=== PATIENT | female | born 1965 | race Caucasian/White ===

== ENCOUNTER 2023-06-24 14:54 | Outpatient (AMB) | payer OTHER, SELFPAY ==
[2023-06-24 15:10] VITALS: BP 120/80; PULSE 78; O2SAT 96; BMI 32.2
--- NOTE | 2023-06-24 15:10 | A.OFFVIS_ITS ---
Intake Vital Signs 06/24/23 15:10 Height 5 ft 8 in Weight 212 lb BMI 32.2 BP 120/80 Blood Pressure Location Rt brachial Position Sitting Pulse 78 Pulse Source Pulse Oximeter Pulse Oximetry (%) 96 Oxygen Delivery Method Room Air Intake Visit Reasons: vishal occ neuralgia, migraine-Conf Intake Note: Patient presents for migraines patient gets migraines 5 times a week, patient has had migraines since teenage years. Allergies aspirin Allergy (Severe, Verified 06/24/23 15:12) Hives Penicillins Allergy (Severe, Verified 06/24/23 15:12) Hives sumatriptan [From Imitrex] Allergy (Severe, Verified 06/24/23 15:12) Agitated prochlorperazine [From Compazine] Allergy (Verified 06/24/23 15:12) Agitated Medication List - Last Reconciled 06/24/23 by Ade Jacobson, ALMA alprazolam 0.5 mg PO DAILY atenolol 50 mg PO DAILY baclofen 20 mg PO QID meclizine 25 mg PO DAILY PRN omeprazole 20 mg PO DAILY ondansetron HCl 8 mg PO Q12H oxycodone-acetaminophen 7.5-300 mg 1 tab PO Q8H PRN trazodone 100 mg PO BEDTIME PRN HPI HPI Comments History of Present Illness Details 57-yr-old female presents for new pt makeda luation of worsening headaches. Pt started having episodic migraine at age 16 at onset of menarche. Then approx 10-11 yrs ago, the headache subsided x's approx 5 yrs. Then out of the blue, the migraine retunred but not w/ a chronic pattern. She has seen many neurologists over the years, she most recently seen by [facility]- last seen approx 1.5 yrs ago. She was tried on Emgality which was not helpful, and then was tried on acetazolamide for ? IIH which she did not tolerate- note per pt she had normal eye exama nd did not have previous recent wt gain, vision changes, LP, head imaging. She was supposed to have MRI but there was insurance auth/scheduling issues. Many yrs ago, she was diagnosed w/ MS by DR Weiss. Per pt- was dx'd based on Brain MRI w/ white matter changes, but normal VEP and LP CSF studies. She was on daily MS injections x's 6 yrs. She was seen by [facility]- and they suggested she be seen by someone closer to home. She then had a f/u comprehensive neuro work-up- and thought that the white matter changes were not specific to MS and thus the MS DMT was stopped. Her last Brain MRI was > 5-6 yrs ago through [facility]. Pt also endorses: anxiety, depression, joint pain, neck pain, some constipation, GERD, h/o gastric bypass sx, insomnia. Pertinent denials include: denies h/o neck injuries, h/o head injuries, denies seizures, denies clotting/vascular d/o's. Headache questionnaire: Age/time of onset? 16 Preceding causes? none Typical headache characteristics: Prodrome symptoms? Unsure Aura? Sees stars before severe attack Pain intensity? Mild-mod or Severe Location, quality, characteristics? Throbbing, stabbing, usually right sided, rarely left sided, and retro-orbital pain. Associated symptoms? Photophobia, phonophobia, allodynia, osmophobia, Nausea, fatigue, yawning, swollen eyelids, activity intolerance, Postdrome? Unsure Triggers? bending over- stress, weather changes, exacerbates headache Time of day? no specific time Duration and Frequency? 18 severe days per month, otherwise near daily mild headache. Rarely has a headache free day. How does headache impact your life? difficult to do her daily activities. 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 Lifestyle considerations: Sleep- can go days w/o sleeping. has had sleep study- normal- prior to gastric bypass. deneis snoring. Uses trazodone which helps. Bedtime- 8pm to 3:30-6am. Exercise: none Substance use: 3 caffeine drinks prior to 12pm. 2 cigarettes per day. No alcohol. Current acute medication use/interventions: Previous acute medication use: Maxalt 10mg- not always effective. Sumatriptan po and inj- not tolerated. Prednisone- sometimes helped. Current preventative medication use: Atenolol 50mg qd (used for migraine). Previous preventative medication use: Mag and B2- ineffective. Topiramate- caused excessive tingling. Acetazolamide- not tolerated- caused dysguesia. Occipital nerve blocks- sometimes helped. Emgality x's 4 cycles- ineffective. Non-pharmacological interventions: rest. PT- 4 yrs ago Family history of migraine or other headache disorder? mother, sister, dtr PFSH Surgical History (Updated 06/24/23 @ 15:13 by STEFANO Kilgore) H/O arthroscopic knee surgery H/O: hysterectomy Family History (Updated 06/24/23 @ 15:14 by STEFANO Kilgore) Father HTN (hypertension) Diabetes Mother HTN (hypertension) Thyroid condition Brother HTN (hypertension) Social History (Updated 06/24/23 @ 15:14 by STEFANO Kilgore) Alcohol intake: never Patient Tobacco Use Status: Current everyday Tobacco user Physical Exam Vital Signs: Last Vital Signs Pulse 78 06/24/23 15:10 BP 120/80 06/24/23 15:10 Pulse Ox 96 06/24/23 15:10 Oxygen Delivery Method Room Air 06/24/23 15:10 BMI result Body Mass Index 32.2 Const Orientation/consciousness: patient oriented x3 HEENT Head: Yes normocephalic Resp Effort & Inspection: normal respiratory effort and able to speak in complete sentences Neuro Other: EOM- eye deviation on convergence. Bilteral posterio cervcical tightness w/ Spurling positive to the left neck/upper trap. Mildy unsteady during Tandem walk. General: patient oriented x3 Cranial nerves: Yes CN's II-XII intact bilaterally Cognition (Neuro): normal cognition Gait exam (Neuro): Normal gait present Motor exam (neuro): 5/5 motor strength present throughout Deep tendon reflexes (DTR's): Right triceps reflex intensity grade: 2+, Left triceps reflex intensity grade: 2+, Rt Biceps (C5, C6): 2+, Left biceps reflex intensity grade: 2+, Right brachioradialis reflex intensity grade: 2+, Left brachioradialis reflex intensity grade: 2+, Right patellar reflex intensity grade: 1+ and Left patellar reflex intensity grade: 1+ Coordination: [id number] test normal and Romberg test negative Pupils: Normal pupillary reactivity/response: bilateral Psych Appearance: grossly normal Mental Status: mental status grossly normal Speech and movement: Normal speech and movement present Affect: normal affect Attitude: cooperative Thought process: Normal thought process present Assessment & Plan Assessment & Plan (1) Worsening headaches: Code(s): R51.9 - Headache, unspecified (2) Cervicalgia: Code(s): M54.2 - Cervicalgia (3) White matter abnormality on MRI of brain: Code(s): R90.82 - White matter disease, unspecified (4) Chronic migraine without aura: Code(s): G43.709 - Chronic migraine without aura, not intractable, without status migrainosus Plan Pt advised to undergo: C-spine XR w/ flex/ext. Brain MRI w/wo- to assess white matter lesion burden. For overall headache management: Discussed importance of good self-care, including but not limited to maintaining a healthy diet, adequate fluid intake, adequate sleep, and engaging in regular physical activity. For headache triggers: Track headaches, especially after any treatment regimen changes. Light sensitivity tips: Patient may try blue light filtering glasses, green glasses, green light therapy.. Avoid wearing sunglasses inside. For acute headache treatment: Discussed importance of taking acute medications at the first sign of headache, however stressed importance of avoiding acute medication overuse (especially with combined headache medications). Trial Nurtec ODT 75mg qd prn- this may be particulalry beneficial as pt has h/o gastric wt loss sx. Reviewed potential adverse effects of gepants, including but not limited to fatigue, nausea, dry mouth, constipation. Previous acute migraine medication trials: Maxalt 10mg- not always effective. Sumatriptan po and inj- not tolerated. Prednisone- sometimes helped. Acute migraine medication contraindications: None at this time. For chronic migraine headache prevention medication: Discussed that preventative medications should be taken routinely as prescribed for best effect, it may take several weeks for full effect to take effect. Contineu Atenolol 50mg qd (used for migraine). Start Botox 155 units IM q 12 weeks. Previous migraine prevention medication trials: Mag and B2- ineffective. Topiramate- caused excessive tingling. Acetazolamide- not tolerated- caused dysguesia. Occipital nerve blocks- sometimes helped. Emgality x's 4 cycles- ineffective. Migraine prevention medication contraindications: Pt to follow-up in 2 months or sooner prn. Orders: Orders XR cervical spine w flex/ext 06/24/23 M54.2 - Cervicalgia XR cervical spine 4V 06/24/23 M54.2 - Cervicalgia MR head/brain wo/w con 06/24/23 R51.9 - Headache, unspecified, R90.82 - White matter disease, unspecified Medications: New onabotulinumtoxinA (Botox) inject 155 units IM across forehead, scalp, and neck 200 units IM ONCE 12 weeks 1 ea 3RF G43.709 - Chronic migraine without aura, not intractable, without status migrainosus rimegepant (Nurtec ODT) 75 mg PO ONCE 30 days PRN 16 tabs 3RF migraine headache MDD 1 tab Coding Level of Care Code Est Pt Level 5 (99535) Diagnoses Worsening headaches R51.9 Cervicalgia M54.2 White matter abnormality on MRI of brain R90.82 Chronic migraine without aura G43.703
== END 2023-06-24 16:49 | disposition home or self-care (01) ==
PROVIDERS: PCP Nurse Practitioner Adult Health; Visit Provider Nurse Practitioner Family
DX: G43.709 Chronic migraine without aura, not intractable, without status migrainosus (principal); M54.2 Cervicalgia; R90.82 White matter disease, unspecified
CPT/HCPCS: 99215

== ENCOUNTER → 2023-06-24 14:54 | Outpatient (BNVA) | payer OTHER, SELFPAY | PROVIDERS: PCP Nurse Practitioner Adult Health; Visit Provider Nurse Practitioner Family ==

== ENCOUNTER 2023-08-08 07:47 | Outpatient (REF) | payer OTHER, SELFPAY ==
--- NOTE | ~2023-08-08 | MR_ITS ---
EXAMINATION: MR BRAIN WITHOUT AND WITH CONTRAST CLINICAL INFORMATION: White matter disease. COMPARISON: None available. TECHNIQUE: Multiplanar, multisequence MRI of the brain was obtained before and after the intravenous administration of 10 mL Gadavist. FINDINGS: Multifocal nearly confluent subcortical and periventricular supratentorial white matter T2 hyperintensities are identified. A dot dash pattern of T2 hyperintensity is present along the callosal septal interface. Several periventricular T2 hyperintensities are noted in a perivenular configuration. No areas of cystic encephalomalacia (T1 dark spots) are identified. No infratentorial lesions are identified. The middle cerebellar peduncles are normal in appearance. Overall mild diffuse commensurate prominence of ventricles and sulci is noted. No intracranial hemorrhage or tumors visualized. Susceptibility weighted images reveal no evidence of acute or chronic hemorrhage within the brain parenchyma. The craniocervical junction and cerebellar tonsils are normal in appearance. Convex inward configuration of the superior margin the pituitary is identified which is a frequently encountered normal anatomic variant. No marrow abnormalities are visualized. No abnormal enhancement the brain noted. Grossly normal flow-related signal intensity is visualized in the major intracranial vessels and dural sinuses. Orbits and globes are normal in appearance. No significant mucosal thickening or retained secretions noted in the paranasal sinuses, mastoid air cells and middle ear cavities. MR/MR head/brain wo/w con IMPRESSION: 1. Multifocal supratentorial periventricular and juxtacortical nonenhancing T2 hyperintense lesions. No infratentorial lesions. No areas of cystic encephalomalacia (T1 dark spots). Findings may represent demyelinating disease. If comparison exams become available for review, an addendum to this report may be issued. 2. Mild diffuse commensurate prominence of ventricles and sulci. This is a borderline finding mildly suspicious for global parenchymal volume loss.
--- NOTE | ~2023-08-08 | XR_ITS ---
EXAMINATION: XR CERVICAL SPINE CLINICAL INFORMATION: Cervicalgia COMPARISON: None available. TECHNIQUE: 7 views of the cervical spine, inclusive of flexion and extension views and bilateral oblique views, were obtained. FINDINGS: The tip of the odontoid is obscured on the open-mouth view. There is straightening of the usual cervical lordosis which can be seen with muscle spasm or be due to patient positioning. There is no fracture or subluxation. There is no change in alignment with flexion and extension. Prevertebral soft tissues are within normal limits. There are anterior marginal osteophytes from C4 through C7. There is minimal disc space narrowing at C5-C6 and C6/C7. The neural foramina are widely patent. XR/XR cervical spine min 6V IMPRESSION: 1. Degenerative disc disease at C5-C6 and C6/C7. 2. Straightening of the usual cervical lordosis which can be seen with muscle spasm or be due to patient positioning.
[2023-08-08] MEDS: gadobutroL 10 ML VIAL IVPUSH (09:14)
== END 2023-08-08 07:48 | disposition home or self-care (01) ==
LOC: HO.MRI 07:47
PROVIDERS: PCP Nurse Practitioner Adult Health; Visit Provider Nurse Practitioner Family
DX: R51.9 Headache, unspecified (principal); M50.322 Other cervical disc degeneration at C5-C6 level; M48.02 Spinal stenosis, cervical region; M50.321 Other cervical disc degeneration at C4-C5 level
CPT/HCPCS: 70553; 72052; A9585

== ENCOUNTER 2023-08-17 07:35 | Outpatient (AMB) | payer OTHER, SELFPAY ==
--- NOTE | 2023-08-17 07:36 | A.OFFVIS_ITS ---
Intake Visit Reasons: 8 wks f/u-LVM Intake Note: Patient presents for 8 week follow up Allergies aspirin Allergy (Severe, Verified 08/17/23 07:42) Hives Penicillins Allergy (Severe, Verified 08/17/23 07:42) Hives sumatriptan [From Imitrex] Allergy (Severe, Verified 08/17/23 07:42) Agitated prochlorperazine [From Compazine] Allergy (Verified 08/17/23 07:42) Agitated Medication List - Last Reconciled 08/17/23 by Ade Jacobson, ALMA alprazolam 0.5 mg PO DAILY atenolol 50 mg PO DAILY baclofen 20 mg PO QID meclizine 25 mg PO DAILY PRN omeprazole 20 mg PO DAILY onabotulinumtoxinA (Botox) 200 units IM ONCE 12 weeks ondansetron HCl 8 mg PO Q12H oxycodone-acetaminophen 7.5-300 mg 1 tab PO Q8H PRN rimegepant (Nurtec ODT) 75 mg PO ONCE PRN 30 days MDD 1 tab trazodone 100 mg PO BEDTIME PRN HPI Comments Details: 57-yr-old female presents for f/u televisit via [employer]. Pt denies any significant interval medical changes. Pt reports she is having 2.5 weeks of migraine days per month, and 5 headache days per week. She started Nurtec, which sometimes helps but sometimes doesn't, like the rizatriptan. However, states the Nurtec helps more often than not. She has not started the Botox yet. Baseline headache characteristics: Aura: Sees stars before severe attack Headache: Mild-mod or Severe, Throbbing, stabbing, usually right sided, rarely left sided, and retro-orbital pain a/w Photophobia, phonophobia, allodynia, osmophobia, Nausea, fatigue, yawning, swollen eyelids, activity intolerance. She continues to have chronic muscle tightness, when more severe has aching non- radiating pain on neck movement. The neck pain makes it difficult to sleep. The c-spine XR showed evidence for muscle spasm. Pt notes that she is compliant w/ Baclofen 20mg qid. In the past, she tried Gabapentin- caused excessive sedation even w/ prolonged trial, Tizanidine- ineffective, Cyclobenzaprine- has helped in the past for back muscle spasm. 08/08/23, XR/XR cervical spine min 6V IMPRESSION: 1. Degenerative disc disease at C5-C6 and C6/C7. 2. Straightening of the usual cervical lordosis which can be seen with muscle spasm or be due to patient positioning. PFS Surgical History (Updated 06/24/23 @ 15:13 by STEFANO Kilgore) H/O arthroscopic knee surgery H/O: hysterectomy Family History (Updated 06/24/23 @ 15:14 by STEFANO Kilgore) Father HTN (hypertension) Diabetes Mother HTN (hypertension) Thyroid condition Brother HTN (hypertension) Social History (Updated 06/24/23 @ 15:14 by STEFANO Kilgore) Alcohol intake: never Patient Tobacco Use Status: Current everyday Tobacco user Physical Exam Const General: cooperative and no acute distress Orientation/consciousness: patient oriented x3 Resp Effort & Inspection: normal respiratory effort and able to speak in complete sentences Neuro General: patient oriented x3 Cognition (Neuro): normal cognition Psych Appearance: grossly normal Mental Status: mental status grossly normal Speech and movement: Clear speech present Affect: normal affect Attitude: cooperative Telehealth Telehealth Telehealth Platform: [employer] Location of provider rendering services: practice address Location of patient: address on file Patient Identification confirmed using: Name, : Yes Telehealth method: video Patient verbally consented to treatment: Yes Patient verbally consented to billing insurance company: Yes Patient informed of any privacy concerns related to visit: Yes Minutes spent on Phone/Video with Pt.: 23 Assessment & Plan Assessment & Plan (1) Cervicalgia: Code(s): M54.2 - Cervicalgia Category: Medical (2) Chronic migraine without aura: Code(s): G43.709 - Chronic migraine without aura, not intractable, without status migrainosus Category: Medical Plan Reviewed C-spine XR w/ flex/ext- Degenerative disc disease at C5-C6 and C6/C7. Straightening of the usual cervical lordosis c/w muscle spasm.. Review Brain MRI w/wo- when available. For cervicalgia: Start PT for myofascial release, craniosacral tx, and eval for dry needling. Hold Baclofen 20mg qid. Trial Cyclobenzaprine 10mg tid. Future considerations: Methocarbamonal trial. For overall headache management: Continue optimizing good self-care, including but not limited to maintaining a healthy diet, adequate fluid intake, adequate sleep, and engaging in regular ph ysical activity. Track headaches. ? For acute headache treatment: Continue Nurtec ODT 75mg qd prn- as Maxalt not always effective. Continue Rizatriptan 10mg prn. Previous acute migraine medication trials: Sumatriptan po and inj- not tolerated. Prednisone- sometimes helped. Acute migraine medication contraindications: None at this time. ? For chronic migraine headache prevention medication: Will f/u on order to start Botox 155 units IM q 12 weeks. Trial Amitriptyline 10-20mg qhs. Continue Atenolol 50mg qd (used for migraine). Previous migraine prevention medication trials: Mag and B2- ineffective. Topiramate- caused excessive tingling. Acetazolamide- not tolerated- caused dysguesia. Occipital nerve blocks- sometimes helped. Emgality x's 4 cycles- ineffective. Migraine prevention medication contraindications: ? ? Pt to follow-up in 3 months or sooner prn. Orders: Orders PT Evaluation and Treatment Today G43.709 - Chronic migraine without aura, not intractable, without status migrainosus, M54.2 - Cervicalgia Medications: New cyclobenzaprine 10 mg PO TID 10 days 30 tabs 0RF amitriptyline 10 - 20 mg (1 - 2 x 10 mg) PO BEDTIME 30 days 60 tabs 3RF Coding Level of Care Code Tele Est Pt Level 4 (00935) Diagnoses Cervicalgia M54.2 Chronic migraine without aura G43.709
== END 2023-08-17 16:07 | disposition home or self-care (01) ==
LOC: HO.HSMS 07:35
PROVIDERS: PCP Nurse Practitioner Adult Health; Visit Provider Nurse Practitioner Family
DX: M54.2 Cervicalgia (principal); G43.709 Chronic migraine without aura, not intractable, without status migrainosus
CPT/HCPCS: 99214

== ENCOUNTER → 2023-08-17 07:35 | Outpatient (BNVA) | payer OTHER, SELFPAY | PROVIDERS: PCP Nurse Practitioner Adult Health; Visit Provider Nurse Practitioner Family ==

== ENCOUNTER 2023-09-28 08:39 | Outpatient (AMB) | payer OTHER, SELFPAY ==
--- NOTE | 2023-09-28 08:42 | MHC.OFFVIS ---
Vital Signs 09/28/23 08:50 Height 5 ft 8 in Weight 199 lb BMI 30.3 BP 120/72 Blood Pressure Location Lt brachial Position Sitting Pulse 88 Pulse Source Pulse Oximeter Pulse Oximetry (%) 99 Oxygen Delivery Method Room Air Intake Visit Reasons: BOTOX Intake Note: Patient presents for Botox. Allergies aspirin Allergy (Severe, Verified 09/28/23 08:50) Hives Penicillins Allergy (Severe, Verified 09/28/23 08:50) Hives sumatriptan [From Imitrex] Allergy (Severe, Verified 09/28/23 08:50) Agitated prochlorperazine [From Compazine] Allergy (Verified 09/28/23 08:50) Agitated Medication List - Last Reconciled 09/28/23 by Sindy Cesar MD alprazolam 0.5 mg PO DAILY amitriptyline 10 - 20 mg (1 - 2 x 10 mg) PO BEDTIME 30 days atenolol 50 mg PO DAILY baclofen 20 mg PO QID cyclobenzaprine 10 mg PO TID 30 days meclizine 25 mg PO DAILY PRN omeprazole 20 mg PO DAILY onabotulinumtoxinA (Botox) 200 units IM ONCE 12 weeks ondansetron HCl 8 mg PO Q12H oxycodone-acetaminophen 7.5-300 mg 1 tab PO Q8H PRN rimegepant (Nurtec ODT) 75 mg PO ONCE PRN 30 days MDD 1 tab trazodone 100 mg PO BEDTIME PRN HPI Comments Details: ? 57y/o female comes for treatment of migraines with botox. ??? Most frequent reported adverse reactions following injection of botox for chronic migraine include neck pain (9%), headache(5%), eyelid ptosis(4%), migraine(4%), muscular weakness(4%), musculuskeletal stiffness(4%), bronchitis(3%), injection site pain (3%), musculoskeletal pain(3%), myalgia(3%), facial paresis(2%), HTN(2%) and muscle spasms(2%) were discussed in detail. ??? Botulinum toxin typeA 200units Lot no [id number] expiration October 2025 was diluted with 4 cc of normal saline . ??? Muscles injected- ??? Frontalis 4 sites ??? Procerus 1 site ??? [employer] Wildlife [employer]- 2 sites ??? Temporalis- 8 sites ??? Occipitalis- 6 sites ??? Cervical paraspinals- 4 sites ??? Trapezius- 6 sites- 10 units each ??? 5 units each in 31 site ??? Total use- 185units ??? Discarded-15units PFSH Surgical History H/O arthroscopic knee surgery H/O: hysterectomy Family History Father HTN (hypertension) Diabetes Mother HTN (hypertension) Thyroid condition Brother HTN (hypertension) Social History Alcohol intake: never Patient Tobacco Use Status: Current everyday Tobacco user Physical Exam Vital Signs: Last Vital Signs Pulse 88 09/28/23 08:50 BP 120/72 09/28/23 08:50 Pulse Ox 99 09/28/23 08:50 Oxygen Delivery Method Room Air 09/28/23 08:50 BMI result Body Mass Index 30.3 Const General: cooperative and no acute distress Orientation/consciousness: patient oriented x3 Resp Effort & Inspection: normal respiratory effort and able to speak in complete sentences Neuro General: patient oriented x3 Cognition (Neuro): normal cognition Psych Appearance: grossly normal Mental Status: mental status grossly normal Speech and movement: Clear speech present Affect: normal affect Attitude: cooperative Office Procedures Botulinum toxin Injection 66275 - Migraine Procedure code (CPT) selection complete Office Meds onabotulinumtoxinA 200 unit solution for injection Performing Provider: Sindy Cesar MD Performing Location: [facility] [place] [facility] Administered by: Sindy Cesar MD on 09/28/23 09:14 Dose Route Admin Location Dispensed Lot Number Expiration Date [facility] 185 unit subcut 200 units [id number] 10/09/25 3159-6938-69 ALLERGAN/BOTOX Comments: see HPI Assessment & Plan Assessment & Plan (1) Chronic migraine without aura: Code(s): G43.709 - Chronic migraine without aura, not intractable, without status migrainosus Category: Medical Plan Patient tolerated the procedure well she will call with any side effects Orders: Orders AMB Botulinum toxin Injection - Patient Supplied Today G43.709 - Chronic migraine without aura, not intractable, without status migrainosus Medications: New onabotulinumtoxinA 200 units subcut ONCE 1 ea 0RF Migraine G43.709 - Chronic migraine without aura, not intractable, without status migrainosus Coding Level of Care Code Est Pt Level 1 (57898) Diagnoses Chronic migraine without aura G43.709 CPT Codes Botox Injection - Botox 3: 96368 - Migraine ([id number])
[2023-09-28 08:50] VITALS: BP 120/72; PULSE 88; O2SAT 99; BMI 30.3
== END 2023-09-28 09:07 | disposition home or self-care (01) ==
PROVIDERS: PCP Nurse Practitioner Adult Health; Visit Provider Psychiatry & Neurology Neurology
DX: G43.709 Chronic migraine without aura, not intractable, without status migrainosus (principal)
CPT/HCPCS: 64615

== ENCOUNTER → 2023-09-28 08:39 | Outpatient (BNVA) | payer OTHER, SELFPAY | PROVIDERS: PCP Nurse Practitioner Adult Health; Visit Provider Psychiatry & Neurology Neurology | DX: G43.709 Chronic migraine without aura, not intractable, without status migrainosus (principal) | CPT/HCPCS: 64615; 99211; J0585 ==

== ENCOUNTER 2023-11-21 08:56 | Outpatient (AMB) | payer OTHER, SELFPAY ==
[2023-11-21 09:12] VITALS: BMI 30.3
--- NOTE | 2023-11-21 09:12 | A.OFFVIS_ITS ---
Vital Signs 11/21/23 09:12 Height 5 ft 8 in Weight 199 lb BMI 30.3 Intake Visit Reasons: 2 Month F/U-LVM Intake Note: Patient presents for 2 month follow up. patient states migraines are better since her last visit Allergies aspirin Allergy (Severe, Verified 11/21/23 09:14) Hives Penicillins Allergy (Severe, Verified 11/21/23 09:14) Hives sumatriptan [From Imitrex] Allergy (Severe, Verified 11/21/23 09:14) Agitated prochlorperazine [From Compazine] Allergy (Verified 11/21/23 09:14) Agitated Medication List - Last Reconciled 11/21/23 by ALMA Sidhu alprazolam 0.5 mg PO DAILY amitriptyline 10 - 20 mg (1 - 2 x 10 mg) PO BEDTIME 30 days atenolol 50 mg PO DAILY baclofen 20 mg PO QID cyclobenzaprine 10 mg PO TID 30 days meclizine 25 mg PO DAILY PRN omeprazole 20 mg PO DAILY onabotulinumtoxinA (Botox) 200 units IM ONCE 12 weeks ondansetron HCl 8 mg PO Q12H oxycodone-acetaminophen 7.5-300 mg 1 tab PO Q8H PRN rimegepant (Nurtec ODT) 75 mg PO ONCE PRN 30 days MDD 1 tab trazodone 100 mg PO BEDTIME PRN HPI Comments Details: 57-yr-old female presents for f/u visit. Pt denies any significant interval medical changes. Brain MRI report showed Multifocal supratentorial periventricular and juxtacortical nonenhancing T2 hyperintense lesions. Upon review of MRI, we referred pt to the [facility] for their opinion- as pt states she has a long h/o of being told she has MS and being tx'd w/ DMTs and then being told she does not have MS. She has had initial consult at the [facility], however thsy are requesting imaging and pt has f/u to review further. Pt reports her headaches have been better. She states she likes the prn Nurtec, this really helps. She has started Botox for chronic migraine tx- which she feels is helping and tolerated well. She is wondering if we can adjust the cyclobenzaprine as she is still having cervical and upper trap tightness. Currently taking Cyclobenzaprine 10mg tid. She did try Amitriptyline but this disrupted her sleep. She has not started PT yet, has not found a local PT provider. Baseline headache characteristics: Aura: Sees stars before severe attack Headache: Mild-mod or Severe, Throbbing, stabbing, usually right sided, rarely left sided, and retro-orbital pain a/w Photophobia, phonophobia, allodynia, osmophobia, Nausea, fatigue, yawning, swollen eyelids, activity intolerance. 08/08/23, MR/MR head/brain wo/w con IMPRESSION: 1. Multifocal supratentorial periventricular and juxtacortical nonenhancing T2 hyperintense lesions. No infratentorial lesions. No areas of cystic encephalomalacia (T1 dark spots). Findings may represent demyelinating disease. If comparison exams become available for review, an addendum to this report may be issued. 2. Mild diffuse commensurate prominence of ventricles and sulci. This is a borderline finding mildly suspicious for global parenchymal volume loss. [facility] Surgical History H/O arthroscopic knee surgery H/O: hysterectomy Family History Father HTN (hypertension) Diabetes Mother HTN (hypertension) Thyroid condition Brother HTN (hypertension) Social History Alcohol intake: never Patient Tobacco Use Status: Current everyday Tobacco user Physical Exam Vital Signs: BMI result Body Mass Index 30.3 Const General: cooperative and no acute distress Orientation/consciousness: patient oriented x3 Resp Effort & Inspection: normal respiratory effort and able to speak in complete sentences Neuro Other: Bilateral posterior cervical tightness- reduced since last visit. General: patient oriented x3 Cranial nerves: Yes CN's II-XII intact bilaterally Cognition (Neuro): normal cognition Psych Appearance: grossly normal Mental Status: mental status grossly normal Speech and movement: Normal speech and movement present Affect: normal affect Attitude: cooperative Assessment & Plan Assessment & Plan (1) Chronic migraine without aura: Code(s): G43.709 - Chronic migraine without aura, not intractable, without status migrainosus Category: Medical (2) Cervicalgia: Code(s): M54.2 - Cervicalgia Category: Medical (3) White matter abnormality on MRI of brain: Code(s): R90.82 - White matter disease, unspecified Category: Medical Plan Reviewed Brain MRI w/wo- Multifocal supratentorial periventricular and juxtacortical nonenhancing T2 hyperintense lesions. F/u w/ [facility] as scheduled. ? For cervicalgia: Again start PT for myofascial release, craniosacral tx, and eval for dry needling- information on local clinics chared w/ pt w/ new printed order. Increase Cyclobenzaprine from 10mg tid to 10mg bid and 20mg qhs. Previous trials- Baclofen 10mg tid- ineffective. Future considerations: Methocarbamonal trial. ? For overall headache management: Continue optimizing good self-care, including but not limited to maintaining a healthy diet, adequate fluid intake, adequate sleep, and engaging in regular physical activity. Track headaches. ? For acute headache treatment: Continue Nurtec ODT 75mg qd prn- as Maxalt not always effective. Continue Rizatriptan 10mg prn. Previous acute migraine medication trials: Sumatriptan po and inj- not tolerated. Prednisone- sometimes helped. Acute migraine medication contraindications: None at this time. ? For chronic migraine headache prevention medication: Continue Botox 155 units IM q 12 weeks, as pt is already experiencing reduction in monthly migraine days and improved effectiveness of acute tx's. Stop Amitriptyline 10-20mg qhs- caused sleep disturbance. Continue Atenolol 50mg qd (used for migraine). Previous migraine prevention medication trials: Mag and B2- ineffective. Topiramate- caused excessive tingling. Acetazolamide- not tolerated- caused dysguesia. Occipital nerve blocks- sometimes helped. Emgality x's 4 cycles- ineffective. Amitriptyline 10-20mg qhs- caused sleep disturbance. Migraine prevention medication contraindications: none at this time. ? ? Pt to follow-up in 6 months or sooner prn. Medications: Changed From cyclobenzaprine 10 mg PO TID 30 days 90 tabs 3RF To cyclobenzaprine 10mg bid and 20mg qhs orally 3 times a day; 120 tabs 3RF 30 days Coding Level of Care Code Est Pt Level 4 (76900) Diagnoses Chronic migraine without aura G43.709 Cervicalgia M54.2 White matter abnormality on MRI of brain R90.82
== END 2023-11-21 10:17 | disposition home or self-care (01) ==
PROVIDERS: PCP Nurse Practitioner Adult Health; Visit Provider Nurse Practitioner Family
DX: G43.709 Chronic migraine without aura, not intractable, without status migrainosus (principal); M54.2 Cervicalgia; R90.82 White matter disease, unspecified
CPT/HCPCS: 99214

== ENCOUNTER 2024-01-10 09:00 | Outpatient (AMB) | payer OTHER, SELFPAY ==
--- NOTE | 2024-01-10 09:03 | A.OFFVIS_ITS ---
Vital Signs 01/10/24 09:04 Height 5 ft 8 in Weight 199 lb BMI 30.3 BP 102/66 Blood Pressure Location Rt brachial Position Sitting Respiration 16 Pulse 81 Pulse Source Pulse Oximeter Pulse Oximetry (%) 96 Oxygen Delivery Method Room Air Intake Visit Reasons: BOTOX Intake Note: Pt presents to the office for Botox injections for Migraines. [employer] Fre[employer] Required: No Allergies aspirin Allergy (Severe, Verified 01/10/24 09:04) Hives Penicillins Allergy (Severe, Verified 01/10/24 09:04) Hives sumatriptan [From Imitrex] Allergy (Severe, Verified 01/10/24 09:04) Agitated prochlorperazine [From Compazine] Allergy (Verified 01/10/24 09:04) Agitated Medication List - Last Reconciled 01/10/24 by Sindy Cesar MD alprazolam 0.5 mg PO DAILY amitriptyline 10 - 20 mg (1 - 2 x 10 mg) PO BEDTIME 30 days atenolol 50 mg PO DAILY cyclobenzaprine 10mg bid and 20mg qhs orally 3 times a day; 30 days meclizine 25 mg PO DAILY PRN omeprazole 20 mg PO DAILY onabotulinumtoxinA (Botox) 200 units IM ONCE 12 weeks ondansetron HCl 8 mg PO Q12H oxycodone-acetaminophen 7.5-300 mg 1 tab PO Q8H PRN rimegepant (Nurtec ODT) 75 mg PO ONCE PRN 30 days MDD 1 tab trazodone 100 mg PO BEDTIME PRN HPI Comments Details: ? 58y/o female comes for treatment of migraines with botox. Number of migraine days before botox 20-30/month Number of migraine days after botox -10/month ER viists - none Intensity - decreased with botox Last treatment- 3mths ago ??? Most frequent reported adverse reactions following injection of botox for chronic migraine include neck pain (9%), headache(5%), eyelid ptosis(4%), migraine(4%), muscular weakness(4%), musculuskeletal stiffness(4%), bronchitis(3%), injection site pain (3%), musculoskeletal pain(3%), myalgia(3%), facial paresis(2%), HTN(2%) and muscle spasms(2%) were discussed in detail. ??? Botulinum toxin typeA 200units Lot no [id number] expiration Mar 2026 was dil uted with 4 cc of normal saline . ??? Muscles injected- ??? Frontalis 4 sites ??? Procerus 1 site ??? Network Systems Administrator- 2 sites ??? Temporalis- 8 sites ??? Occipitalis- 6 sites ??? Cervical paraspinals- 4 sites ??? Trapezius- 6 sites- 5 units each ??? 5 units each in 31 site ??? Total use- 155units ??? Discarded-15units PFSH Surgical History (Reviewed 01/10/24 @ 09: by Sindy Cesar MD) H/O arthroscopic knee surgery H/O: hysterectomy Family History Father HTN (hypertension) Diabetes Mother HTN (hypertension) Thyroid condition Brother HTN (hypertension) Social History Alcohol intake: never Patient Tobacco Use Status: Current everyday Tobacco user Physical Exam Vital Signs: Last Vital Signs Pulse 81 01/10/24 09:04 Resp 16 01/10/24 09:04 BP 102/66 01/10/24 09:04 Pulse Ox 96 01/10/24 09:04 Oxygen Delivery Method Room Air 01/10/24 09:04 BMI result Body Mass Index 30.3 Const General: cooperative and no acute distress Orientation/consciousness: patient oriented x3 Resp Effort & Inspection: normal respiratory effort and able to speak in complete sentences Neuro General: patient oriented x3 Cognition (Neuro): normal cognition Psych Appearance: grossly normal Mental Status: mental status grossly normal Speech and movement: Clear speech present Affect: normal affect Attitude: cooperative Office Procedures Botulinum toxin Injection 29688 - Migraine Procedure code (CPT) selection complete Office Meds onabotulinumtoxinA 200 unit solution for injection Performing Provider: Sindy Cesar MD Performing Location: [facility] – [place] [facility] Administered by: Sindy Cesar MD on 01/10/24 09:25 Dose Route Admin Location Dispensed Lot Number Expiration Date [facility] Hearing Aid Fitter 155 unit subcut 200 units [id number] 03/11/26 8010-9586-79 ALLERGAN/BOTOX Comments: see HPI Assessment & Plan Assessment & Plan (1) Chronic migraine without aura: Code(s): G43.709 - Chronic migraine without aura, not intractable, without status migrainosus Category: Medical Qualifiers: Status migrainosus presence: without status migrainosus Intractability: intractable Qualified Code(s): G43.719 - Chronic migraine without aura, intractable, without status migrainosus Plan Patient tolerated the procedure well she will call with any side effects Orders: Orders AMB Botulinum toxin Injection Today G43.719 - Chronic migraine without aura, intractable, without status migrainosus Medications: New onabotulinumtoxinA 200 units subcut ONCE 1 ea 0RF migraine G43.719 - Chronic migraine without aura, intractable, without status migrainosus Coding Level of Care Code Est Pt Level 1 (29806) Diagnoses Intractable chronic migraine without aura and without status migrainosus G43.719 Status migrainosus presence: without status migrainosus Intractability: intractable CPT Codes Botox Injection - Botox 3: 66295 - Migraine ([id number])
[2024-01-10 09:04] VITALS: BP 102/66; PULSE 81; RESP 16; O2SAT 96; BMI 30.3
== END 2024-01-10 09:22 | disposition home or self-care (01) ==
PROVIDERS: PCP Nurse Practitioner Adult Health; Visit Provider Psychiatry & Neurology Neurology
DX: G43.719 Chronic migraine without aura, intractable, without status migrainosus (principal)
CPT/HCPCS: 64615

== ENCOUNTER → 2024-01-10 09:00 | Outpatient (BNVA) | payer OTHER, SELFPAY | PROVIDERS: PCP Nurse Practitioner Adult Health; Visit Provider Psychiatry & Neurology Neurology | DX: G43.719 Chronic migraine without aura, intractable, without status migrainosus (principal) | CPT/HCPCS: 64615; 99211; J0585 ==

== ENCOUNTER 2024-04-12 09:53 | Outpatient (AMB) | payer OTHER, SELFPAY ==
--- OUTSIDE RECORDS SUMMARY | 2024-04-12 09:57 | XMS_ITS ---
Author Name [facility] Organization Unknown History of Medication Use Medication Directions Dispensed Refills Start Date End Date Stat Galcanezumab-gnlm (Emgality) 120 MG/ML SOSY 10/23/2023 aborted ALPRAZolam (XANAX) 0.25 MG tablet Take 1 tablet (0.25 mg total) by mouth 3 (three) times a day as needed. 10/23/2023 active Varenicline Tartrate (Tyrvaya) 0.03 MG/ACT SOLN USE 1 SPRAY NASALLY TWICE A DAY 10/23/2023 active omeprazole (PriLOSEC) 20 MG capsule Take 1 capsule (20 mg total) by mouth 2 (two) times a day. 10/23/2023 active rizatriptan (MAXALT) 10 MG tablet TAKE 1 TABLET AT ONSET OF HEADACHE, MAY REPEAT IN 2 HOURS IF NEEDED, MAX OF 2 TABLETS PER 24 HOURS OR 6 TABLETS PER WEEK 10/23/2023 active oxyCODONE (ROXICODONE) 5 MG immediate release tablet Take 1.5 tablets (7.5 mg total) by mouth. 10/23/2023 active Diclofenac Sodium 1 % GEL Apply 4 g topically. 10/23/2023 active traZODone (DESYREL) 100 MG tablet TAKE 1 TABLET NIGHTLY AT BEDTIME 10/23/2023 active nystatin (MYCOSTATIN) cream APPLY CREAM TOPICALLY TWICE DAILY 10/23/2023 active lamoTRIgine (LaMICtal) 25 MG tablet Take 2 tablets (50 mg total) by mouth 2 (two) times a day. 10/23/2023 active Ferrous Sulfate (IRON PO) Take 15 mL by mouth. 10/23/2023 active promethazine (PHENERGAN) 12.5 MG tablet Take 1 tablet (12.5 mg total) by mouth every 6 (six) hours as needed. 10/23/2023 active Cholecalciferol (Vitamin D-[address]) 25 MCG (1000 UT) tablet Take 1 tablet (1,000 Units total) by mouth. 10/23/2023 active senna-docusate (PERICOLACE) 8.6-50 MG Take 1 tablet by mouth daily. 10/23/2023 aborted atenolol (TENORMIN) tablet 50 mg Take 1 tablet (50 mg total) by mouth daily. 10/23/2023 active venlafaxine (EFFEXOR-XR) 150 MG 24 hr capsule TAKE 1 CAPSULE DAILY TO BE TAKEN WITH THE 75 MG CAPSULE FOR A TOTAL OF 225 MG DAILY 10/23/2023 aborted rimegepant (Nurtec) 75 MG TBDP ODT Take 1 tablet (75 mg total) by mouth. 10/23/2023 active Riboflavin (Vitamin B-2) 100 MG TABS Take by mouth. 10/23/2023 abor new cyclobenzaprine (FLEXERIL) 10 MG tablet Take 1 tablet (10 mg total) by mouth. 10/23/2023 active semaglutide-weight management (Wegovy) 2.4 MG/0.75ML SOAJ subcutaneous auto-injector INJECT 0.75 ML (2.4 MG TOTAL) UNDER THE SKIN EVERY 7 DAYS 10/23/2023 active baclofen (LIORESAL) 10 MG tablet TAKE ONE AND ONE-HALF TABLETS FOUR TIMES A DAY 10/23/2023 aborted cyanocobalamin (VITAMIN B12) 1000 MCG/ML injection Inject 1 mL (1,000 mcg total) into the muscle. 10/23/2023 active amoxicillin-clavulanat e (AUGMENTIN) 875-125 MG per tablet Take 1 tablet by mouth 2 (two) times a day. 10/23/2023 aborted Problems Problem Status Onset Date Problem Type Date of Resoluti on Source Migraine variant active EncounterDiagnosisAct CTTHNEMG Chronic non-specific white matter lesions on MRI active EncounterDiagnosisAct CTTH NEMG
--- NOTE | 2024-04-12 10:00 | A.OFFVIS_ITS ---
Vital Signs 04/12/24 10:00 Height 5 ft 8 in Intake Visit Reasons: BOTOX Intake Note: Patient presents for botox Allergies aspirin Allergy (Severe, Verified 01/10/24 09:04) Hives Penicillins Allergy (Severe, Verified 01/10/24 09:04) Hives sumatriptan [From Imitrex] Allergy (Severe, Verified 01/10/24 09:04) Agitated prochlorperazine [From Compazine] Allergy (Verified 01/10/24 09:04) Agitated Medication List - Last Reconciled 04/12/24 by Sindy Cesar MD alprazolam 0.5 mg PO DAILY amitriptyline 10 - 20 mg (1 - 2 x 10 mg) PO BEDTIME 30 days atenolol 50 mg PO DAILY cyclobenzaprine 10mg bid and 20mg qhs orally 3 times a day; 30 days meclizine 25 mg PO DAILY PRN omeprazole 20 mg PO DAILY onabotulinumtoxinA (Botox) 200 units IM ONCE 12 weeks ondansetron HCl 8 mg PO Q12H oxycodone-acetaminophen 7.5-300 mg 1 tab PO Q8H PRN rimegepant (Nurtec ODT) 75 mg PO ONCE PRN 30 days MDD 1 tab trazodone 100 mg PO BEDTIME PRN HPI Comments Details: ? 58y/o female comes for treatment of migraines with botox. Number of migraine days before botox 20-30/month Number of migraine days after botox -10/month ER viists - none Intensity - decreased with botox Last treatment- 3mths ago ??? Most frequent reported adverse reactions following injection of botox for chronic migraine include neck pain (9%), headache(5%), eyelid ptosis(4%), migraine(4%), muscular weakness(4%), musculuskeletal stiffness(4%), bronchitis(3%), injection site pain (3%), musculoskeletal pain(3%), myalgia(3%), facial paresis(2%), HTN(2%) and muscle spasms(2%) were discussed in detail. ??? Botulinum toxin typeA 200units Lot no C [id number] expiration Dec 2025 was diluted with 4 cc of normal saline . ??? Muscles injected- ??? Frontalis 4 sites ??? Procerus 1 site ??? Director Perioperative- 2 sites ??? Temporalis- 8 sites ??? Occipitalis- 6 sites ??? Cervical paraspinals- 4 sites ??? Trapezius- 6 sites- 5 units each ??? 5 units each in 31 site ??? Total use- 155units ??? Discarded-15units PFSH Surgical History H/O arthroscopic knee surgery H/O: hysterectomy Family History Father HTN (hypertension) Diabetes Mother HTN (hypertension) Thyroid condition Brother HTN (hypertension) Social History Alcohol intake: never Patient Tobacco Use Status: Current everyday Tobacco user Physical Exam Const General: cooperative and no acute distress Orientation/consciousness: patient oriented x3 Resp Effort & Inspection: normal respiratory effort and able to speak in complete sentences Neuro General: patient oriented x3 Cognition (Neuro): normal cognition Psych Appearance: grossly normal Mental Status: mental status grossly normal Speech and movement: Clear speech present Affect: normal affect Attitude: cooperative Office Procedures Botulinum toxin Injection 22341 - Migraine Procedure code (CPT) selection complete Office Meds onabotulinumtoxinA 200 unit solution for injection Performing Provider: Sindy Cesar MD Performing Location: [facility] Administered by: Sindy Cesar MD on 04/12/24 10:35 Dose Route Admin Location Dispensed Lot Number Expiration Date [facility] Real Estate Acquisition Analyst 155 unit subcut 200 units [id number] ALLERGAN/BOTOX Comments: see hpi Assessment & Plan Assessment & Plan (1) Chronic migraine without aura: Code(s): G43.709 - Chronic migraine without aura, not intractable, without status migrainosus Category: Medical Qualifiers: Status migrainosus presence: without status migrainosus Intractability: intractable Qualified Code(s): G43.719 - Chronic migraine without aura, intractable, without status migrainosus Plan Patient tolerated the procedure well she will call with any side effects Orders: Orders AMB Botulinum toxin Injection - Patient Supplied N/C Today G43.719 - Chronic migraine without aura, intractable, without status migrainosus Medications: New onabotulinumtoxinA 200 units subcut ONCE 1 ea 0RF migraine G43.719 - Chronic migraine without aura, intractable, without status migrainosus Coding Level of Care Code Est Pt Level 1 (60070) Diagnoses Intractable chronic migraine without aura and without status migrainosus G43.719 Status migrainosus presence: without status migrainosus Intractability: intractable CPT Codes Botox Injection - Botox 3: 22376 - Migraine ([id number])
== END 2024-04-12 10:26 | disposition home or self-care (01) ==
PROVIDERS: PCP Nurse Practitioner Adult Health; Visit Provider Psychiatry & Neurology Neurology
DX: G43.719 Chronic migraine without aura, intractable, without status migrainosus (principal)
CPT/HCPCS: 64615

== ENCOUNTER → 2024-04-12 09:53 | Outpatient (BNVA) | payer OTHER, SELFPAY | PROVIDERS: PCP Nurse Practitioner Adult Health; Visit Provider Psychiatry & Neurology Neurology | DX: G43.719 Chronic migraine without aura, intractable, without status migrainosus (principal) | CPT/HCPCS: 64615; 99211; J0585 ==

== ENCOUNTER 2024-07-24 07:51 | Outpatient (AMB) | payer BC, SELFPAY ==
--- NOTE | 2024-07-24 07:54 | MHC.OFFVIS ---
Vital Signs 07/24/24 07:56 Height 5 ft 8 in Weight 190 lb BMI 28.9 Pulse 77 Pulse Source Pulse Oximeter Pulse Oximetry (%) 100 Oxygen Delivery Method Room Air Intake Visit Reasons: BOTOX Intake Note: patient presents for follow up Botox. Patient supplied Allergies aspirin Allergy (Severe, Verified 07/24/24 07:58) Hives Penicillins Allergy (Severe, Verified 07/24/24 07:58) Hives sumatriptan [From Imitrex] Allergy (Severe, Verified 07/24/24 07:58) Agitated prochlorperazine [From Compazine] Allergy (Verified 07/24/24 07:58) Agitated Medication List - Last Reconciled 07/25/24 by Sindy Cesar MD alprazolam 0.5 mg PO DAILY cyclobenzaprine 10mg bid and 20mg qhs orally 3 times a day; 30 days meclizine 25 mg PO DAILY PRN omeprazole 20 mg PO DAILY onabotulinumtoxinA (Botox) 200 units IM ONCE 12 weeks ondansetron HCl 8 mg PO Q12H oxycodone-acetaminophen 7.5-300 mg 1 tab PO Q8H PRN rimegepant (Nurtec ODT) 75 mg PO ONCE PRN 30 days MDD 1 tab trazodone 100 mg PO BEDTIME PRN HPI Comments Details: ? 58y/o female comes for treatment of migraines with botox. Number of migraine days before botox 20-30/month Number of migraine days after botox -10/month ER viists - none Intensity - decreased with botox Last treatment- 3mths ago ??? Most frequent reported adverse reactions following injection of botox for chronic migraine include neck pain (9%), headache(5%), eyelid ptosis(4%), migraine(4%), muscular weakness(4%), musculuskeletal stiffness(4%), bronchitis(3%), injection site pain (3%), musculoskeletal pain(3%), myalgia(3%), facial paresis(2%), HTN(2%) and muscle spasms(2%) were discussed in detail. ??? Botulinum toxin typeA 200units Lot no C [id number] expiration Dec 2025 was diluted with 4 cc of normal saline . ??? Muscles injected- ??? Frontalis 4 sites ??? Procerus 1 site ??? Laundry Room Attendant- 2 sites ??? Temporalis- 8 sites ??? Occipitalis- 6 sites ??? Cervical paraspinals- 4 sites ??? Trapezius- 6 sites- 5 units each ??? 5 units each in 31 site ??? Total use- 155units ??? Discarded-15units PFSH Surgical History H/O arthroscopic knee surgery H/O: hysterectomy Family History Father HTN (hypertension) Diabetes Mother HTN (hypertension) Thyroid condition Brother HTN (hypertension) Social History Alcohol intake: never Patient Tobacco Use Status: Current everyday Tobacco user Physical Exam Vital Signs: Last Vital Signs Pulse 77 07/24/24 07:56 Pulse Ox 100 07/24/24 07:56 Oxygen Delivery Method Room Air 07/24/24 07:56 BMI result Body Mass Index 28.9 Const General: cooperative and no acute distress Orientation/consciousness: patient oriented x3 Resp Effort & Inspection: normal respiratory effort and able to speak in complete sentences Neuro General: patient oriented x3 Cognition (Neuro): normal cognition Psych Appearance: grossly normal Mental Status: mental status grossly normal Speech and movement: Clear speech present Affect: normal affect Attitude: cooperative Office Procedures Botulinum toxin Injection 80303 - Migraine Procedure code (CPT) selection complete Office Meds onabotulinumtoxinA 200 unit solution for injection Performing Provider: Sindy Cesar MD Performing Location: [facility] [place] [facility] Administered by: Sindy Cesar MD on 07/24/24 09:27 Dose Route Admin Location Dispensed Lot Number Expiration Date [facility] [place] 2[place] Production Editor 155 unit subcut 200 units [id number] ALLERGAN/BOTOX Comments: see hpi Assessment & Plan Assessment & Plan (1) Chronic migraine without aura: Code(s): G43.709 - Chronic migraine without aura, not intractable, without status migrainosus Category: Medical Qualifiers: Status migrainosus presence: without status migrainosus Intractability: intractable Qualified Code(s): G43.719 - Chronic migraine without aura, intractable, without status migrainosus Plan Patient tolerated the procedure well she will call with any side effects Orders: Orders AMB Botulinum toxin Injection - Patient Supplied N/C 07/24/24 G43.719 - Chronic migraine without aura, intractable, without status migrainosus Medications: New onabotulinumtoxinA 200 units subcut ONCE 1 ea 0RF Migraine G43.719 - Chronic migraine without aura, intractable, without status migrainosus Coding Level of Care Code Est Pt Level 1 (67949) Diagnoses Intractable chronic migraine without aura and without status migrainosus G43.719 Status migrainosus presence: without status migrainosus Intractability: intractable CPT Codes Botox Injection - Botox 3: 46625 - Migraine ([id number])
--- OUTSIDE RECORDS SUMMARY | 2024-07-24 07:55 | XMS_ITS | Clinical Summary ---
Author Organization [address] [place] [address] Address [address] [place] [address] Phone Care Team Providers Care Forms Builder Name Role Phone Unavailable Primary Care Provider Unavailabl e Surgical History Surgery Date Site/Laterality Comments KNEE SURGERY PROCEDURE:KNEE SURGERY FOOT SURGERY PROCEDURE:FOOT SURGERY TUBAL LIGATION PROCEDURE:TUBAL LIGATION HYSTERECTOMY PROCEDURE:HYSTERECTOMY GASTRIC BYPASS PROCEDURE:GASTRIC BYPASS OVARY SURGERY PROCEDURE:OVARY SURGERY OTHER SURGICAL HISTORY PROCEDURE:FUSION THUMB Medical History Medical History Date Comments Cancer ([facility]/HCC V24, [facility]/HCC V28) DX:Cancer (HCC) Depression DX:Depression Social History Tobacco Use Types Packs/Day Years Used Date Smoking Tobacco: Never Assessed Comments Unknown Sex and Gender Information Value Date Recorded Sex Assigned at Not on file Legal Sex Female 9:52 AM EST Gender Identity Not on file Sexual Orientation Not on file Obstetrics History Last Filed Vital Signs Vital Sign Reading [...] Mass Index 31.32 01/13/2024 8:15 AM EDT Plan of Treatment Health Maintenance Due Date Last Done Comments Breast Cancer Screening 1965 COVID-19 Vaccine (#1) 1970 DTaP,Tdap,and Td Vaccines (1 - Tdap) 1984 Hepatitis B Vaccines (1 of 3 - 19+ 3-dose series) 1984 Cervical Cancer Screening: P ap Smear 1986 Pneumococcal Vaccine: 50+ Ye ars (1 of 1 - PCV) 12/25/2015 Zoster Vaccines (1 of 2) 12/25/2015 Colorectal Cancer Screening: Colonoscopy 01/19/2024 Depression Screening 01/19/2024 HIV Screening 01/19/2024 Hepatitis C Screening 01/19/2024 Social Influencers of Health Screening 01/19/2024 Influenza Vaccine (Season Ended) 2024 HIB Vaccines Aged Out No longer eligi ble based on patient's age to complete this topic HPV Vaccines Aged Out No longer eligi ble based on patient's age to complete this topic Hepatitis A Vaccines Aged Out No long er eligible based on patient's age to complete this topic IPV Vaccines Aged Out No longer eligi ble based on patient's age to complete this topic MMR Vaccines Aged Out No longer eligi ble based on patient's age to complete this topic Meningococcal ACWY Vaccine Aged Out N o longer eligible based on patient's age to complete this topic Meningococcal B Vaccine Aged Out No l onger eligible based on patient's age to complete this topic Pneumococcal Vaccine: Pediat rics (0 to 5 Years) and At-Risk Patients (6 to 64 Years) Aged Out No longer eligible b ased on patient's age to complete this topic RSV Immunization Patients Un dane 20 months Aged Out No longer eligible b ased on patient's age to complete this topic Varicella Vaccines Aged Out No longer eligible based on patient's age to complete this topic Insurance [place] [id number]
--- OUTSIDE RECORDS SUMMARY | 2024-07-24 07:55 | XMS_ITS | Patient Health Record ---
Author Organization [facility] Address [address] [place] [address] Care Team Providers Care Pinsetter Mechanic Helper Name Role Phone Elliott Teixeira Primary Care Provider Jennifer Gordillo Unavailable Unavailable Allergies Allergen (clinical drug ingredient) Drug/Non Drug Allergy documented on EMR Reaction Allergy Type Onset Date Status Compazine akisthisia Drug Allergy Active aspirin Aspirin hives Drug Allergy Active codeine Codeine Unknown Drug Allergy Active Penicillin hives Drug Allergy Active Reason For Referral No Information Medications Medication SIG (Take, Route, Frequency, Duration) Notes Start Date End Date Status Venlafaxine HCl ER 225 MG 1 tablet with food Orally Once a day Active Omeprazole 20 MG 1 capsule 30 minutes before morning meal Orally bid for gerd Active Atenolol 50 MG 1 tablet Orally Once a day Active traZODone HCl 100 MG 1 tablet at bedtime Orally Once a day Active Cyanocobalamin 1000 MCG/ML 1 mL Injection 1/month Active ALPRAZolam 0.25 MG 1 tablet Orally 3 x/day Active oxyCODONE HCl 5 MG 1 1/2 tablets Orally every 6 hrs for hip bursitis Active acetaZOLAMIDE 250 MG 2 tablets Orally Twice a day for 90 days Active Vitamin D 25 MCG (1000 UT) 1 tablet Orally Once a day Active Baclofen 10 MG 1 1/2 tablet Orally Three times a day Active Ondansetron HCl 8 MG 1 tablet as needed Oral q6h prn nausea for 30 days Active Chantix Continuing Month Trent 1 MG as directed Orally bid smoking cessation 10 packs/w to 3 ppw Active Emgality 120 MG/ML Inject 1 syringe Subcutaneous q30 days for 90 days Active Multivitamin - 1 tablet Orally bid Active Rizatriptan Benzoate 10 MG 1 tablet Orally prn at onset of migraine. May repeat x 1 after 2 hrs if headache recurs. uses 18/month Active Social History Tobacco Use: Social History Observation Description Date Details (start date - stop date) Current Smoker NA - NA Household Question Answer Notes Marital status: lives w/ , son, daughter, 2 grand kids, 1 dog Level of education: finished high school Tobacco Use/Smoking Question Answer Notes Tobacco use: current smoker Section Notes: Smokes 2 cigarettes per day, used to smoke 2 packs a day. 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 [employer] Problems Problem Type SNOMED Code ICD Code Onset Dates Problem Status W/U Status Risk Notes Problem Chronic intractable migraine without aura ([id number] ) Chronic migraine without aura, intractable, with status migrainosus (G43.711) Active confirmed Plan Of Treatment No Information Insurance Providers Payer Name Payer Address Payer Phone Subscriber Number Group Number Insured Name Patient Relationship to Insured Coverage Start Date Coverage End Date BCBS PPO [address] [place], [place] [id number] Mary Kate Castro Self - patient is the insured Medical (General) History Medical History History ICD Code depression hypertension (before gastric bypass/weig ht loss 167 lbs bladder cancer immunotherapy Surgical History Surgery Date(Month/Year) plantar fasciitis x2 23-24 years ago L knee torn ligaments 1981 gastric bypass aislinn-en-Y 2005 MOLINA w/o BSO 2008 unilat oophorectomy fibroid torsion 2009
--- OUTSIDE RECORDS SUMMARY | 2024-07-24 07:55 | XMS_ITS | Encounter Summary ---
Author Organization [facility] Address [address] [place] [address] Care Team Providers Care Still Operator Helper Name Role Phone Unavailable Primary Care Provider Unavailabl e Encounter Details Date Type Department Care Team (Late st Contact Info) Description 01/13/2024 7:54 AM EDT Hospital Encounter TH HISTORIC ENCOUNTERS [facility]AST[facility] CONVERSION ONLY Saroj Melton MD [address] [facility] [address] [place] [address] Social History Tobacco Use Types [...] yet she got a phone call from [facility] to pick it we will review [...] injection recently started, [facility] with better control currently with [...] patient follows up for migraine headaches with [facility] she had an MRI brain follow-up [...] yet patient to get the disc from [facility] and reviewed if there is c oncerning T2 lesions we will obtain MRI cervical, and thoracic spine to assess the current disease burden. I would also like to check bloodwork for MS mimickers. We have discussed the array of services the [facility] has to offer patients and I have recommended the following as listed below. Plan was discussed with the patient Discussed with the patient did not obtain her MRI brain yet shegot a phone call from [facility] to pick it we will review [...] with: Neurology continue Botox and Nurtec -RTC [id number] for follow up The patient and I [...] 30 minutes. The majority of the actual taaj-oh-[id number] visit was spent counseling the patient with respect to the current neurological picture. Saroj Melton MD documented in this encounter Plan of Treatment Not on file documented as of this encounter Visit Diagnoses Not on filedocumented in this encounter
--- OUTSIDE RECORDS SUMMARY | 2024-07-24 07:55 | XMS_ITS | Clinical Summary ---
Author Organization [facility] Address [address] [place] [address] Care Team Providers Care Boat Outfitter Name Role Phone Unavailable Primary Care Provider Unavailabl e Medications Medication Sig Dispensed Refills Start Date End Date Status Varenicline Tartrate (Tyrvaya) 0.03 MG/ACT SOLN USE 1 SPRAY NASALLY TWICE A DAY 0 01/04/2023 Active traZODone (DESYREL) 100 MG tablet TAKE 1 TABLET NIGHTLY AT BEDTIME 0 01/12/2021 Active semaglutide-weight management (Wegovy) 2.4 MG/0.75ML SOAJ subcutaneous auto-injector INJECT 0.75 ML (2.4 MG TOTAL) UNDER THE SKIN EVERY 7 DAYS 0 01/27/2022 Active rizatriptan (MAXALT) 10 MG tablet TAKE 1 TABLET AT ONSET OF HEADACHE, MAY REPEAT IN 2 HOURS IF NEEDED, MAX OF 2 TABLETS PER 24 HOURS OR 6 TABLETS PER WEEK 0 08/21/2021 Active rimegepant (Nurtec) 75 MG TBDP ODT Take 1 tablet (75 mg total) by mouth. 0 08/15/2023 Active omeprazole (PriLOSEC) 20 MG capsule Take 1 capsule (20 mg total) by mouth 2 (two) times a day. 0 04/23/2021 Active lamoTRIgine (LaMICtal) 25 MG tablet Take 2 tablets (50 mg total) by mouth 2 (two) times a day. 0 01/28/2022 Active nystatin (MYCOSTATIN) cream APPLY CREAM TOPICALLY TWICE DAILY 0 10/05/2021 Active Ferrous Sulfate (IRON PO) Take 15 mL by mouth. 0 Active Diclofenac Sodium 1 % GEL Apply 4 g topically. 0 10/05/2021 Active cyclobenzaprine (FLEXERIL) 10 MG tablet Take 1 tablet (10 mg total) by mouth. 0 08/26/2023 Active cyanocobalamin (VITAMIN B12) 1000 MCG/ML injection Inject 1 mL (1,000 mcg total) into the muscle. 0 07/06/2021 Active Cholecalciferol (Vitamin D-[address]) 25 MCG (1000 UT) tablet Take 1 tablet (1,000 Units total) by mouth. 0 Active atenolol (TENORMIN) tablet 50 mg Take 1 tablet (50 mg total) by mouth daily. 0 01/12/2021 Active ALPRAZolam (XANAX) 0.25 MG tablet Take 1 tablet (0.25 mg total) by mouth 3 (three) times a day as needed. 0 09/01/2021 Active Botox 200 units SOLR injection 0 12/22/2023 Active Social History Tobacco Use Types Packs/Day Years Used Date Smoking Tobacco: Never Assessed Sex and Gender Information Value Date Recorded Sex Assigned at Female 10/12/2023 10:27 AM EDT Gender Identity Not on file Sexual Orientation Not on file Job Start Date Occupation Industry Not on file Not on file Not on file Last Filed Vital Signs Vital Sign Reading Time Taken Comments Blood Pressure 131/93 01/13/2024 8:15 AM EDT Pulse 80 01/13/2024 8:15 AM EDT Temperature 36.1 ??C (96.9 ??F) 01/13/2024 8:15 AM ED T Respiratory Rate - - Oxygen Saturation 96% 10/12/2023 10:55 AM EDT Inhaled Oxygen Concentration - - Weight 93.4 kg (206 lb) 01/13/2024 8:15 AM EDT Height 172.7 cm (5' 8 ) 01/13/2024 8:15 AM EDT Body Mass Index 31.32 01/13/2024 8:15 AM EDT Plan of Treatment Health Maintenance Due Date Last Done Comments Hepatitis B Vaccines (1 of 3 - 3-dose series) 1965 COVID-19 Vaccine (#1) 06/23/1966 Depression Screening 1977 BMI Counseling 12/25/1983 Preventative Health Evaluation 12/25/1983 Cervical Cancer Screening (Pap Smear) 1986 Colon Cancer Screening (Colonoscopy) 2010 Breast Cancer Screening (Mammogram) 12/25/2015 Shingrix-Zoster Vaccine (1 of 2) 12/25/2015 Influenza Vaccine (#1) 2023 3, 12/30/2021, 03/24/2021, Additional history exists DTap / Tdap / Td (2 - Td or Tdap) 08/28/2028 08/28/2018 Hepatitis C Screening Completed 04/26/2020 Pneumococcal Vaccine Aged Out 01/04/2023, 04/25/19 21 No longer eligible based on patient's age to complete this topic RSV Ped < 20 months Aged Out No longe r eligible based on patient's age to complete this topic
--- OUTSIDE RECORDS SUMMARY | 2024-07-24 07:55 | XMS_ITS | Clinical Summary ---
Author Organization [facility] [place] [address] Care Team Providers Care Allergy And Immunology Specialist Name Role Phone Jennifer Gordillo APRN Primary Care Provider [phone] Allergies Active Allergy Reactions Criticality Noted Date Comments Aspirin Hives Medium 04/29/2017 Codeine Hives Low 04/29/2017 Penicillins Hives Low 04/29/2017 Prochlorperazine Low 04/29/2017 Other reaction(s): Other (See Comments) restlessness Sumatriptan Succinate Palpitations Medium 04/29/2017 Chest pain Medications Medication Sig Dispensed Refills Start Date End Date Status ALPRAZolam (Xanax) 0.25 mg Tablet Take 1 tablet by mouth 3 times daily as needed. 09/01/2021 Active atenoloL (Tenormin) 50 mg Tablet Take 1 tablet by mouth daily. 01/12/2021 Active baclofen (Lioresal) 10 mg Tablet TAKE ONE AND ONE-HALF TABLETS FOUR TIMES A DAY 04/27/2021 Active cholecalciferol (Vitamin D3) 1,000 unit Tablet Take 1,000 Units by mouth Daily. Active cyanocobalamin, Vitamin B-12, 1,000 mcg/mL Solution Inject 1,000 mcg into the muscle. 07/06/2021 Active diclofenac (Voltaren) 1 % Gel APPLY 4 GRAMS TOPICALLY TO AFFECTED AREA 4 TIMES DAILY FOR 14 DAYS 10/05/2021 Active Fluocinolone Acetonide Oil (DermOtic Oil) 0.01 % Drops as needed. 08/13/2021 Active multivitamin with minerals (CENTRUM) 9 mg iron/15 mL Liquid Take 15 mLs by mouth Daily. Active nystatin (Mycostatin) Cream as needed. 10/05/2021 Active omeprazole (PriLOSEC) 20 mg Capsule, Delayed Release(E.C.) daily. 04/23/2021 Active promethazine (PHENERGAN) 12.5 mg Tablet Take 12.5 mg by mouth Every 6 hours as needed. 09/26/2020 Active rizatriptan (MAXALT) 10 mg Tablet TAKE ONE TABLET BY MOUTH AT ONSET OF HEADACHE - MAY REPEAT IN TWO HOURS IF NEEDED - MAX OF 2 TABLETS PER 24 HOURS OR 6 TABLETS PER WEEK 08/21/2021 Active Syringe with Needle, Disp, (BD Luer-Polo Syringe) 3 mL 25 x 1 1/2 Syringe USE TO INJECT MEDICATION EVERY 30 DAYS 07/12/2019 Active BD Luer-Polo Syringe 3 mL 25 x 5/8 Syringe 09/28/2021 Active traZODone (Desyrel) 100 mg Tablet TAKE 1 TABLET NIGHTLY AT BEDTIME 01/12/2021 Active varenicline (Chantix) 1 mg Tablet TAKE 1 TABLET BY MOUTH TWICE DAILY WITH MEALS AND A FULL GLASS OF WATER 10/05/2021 Active venlafaxine XR (Effexor-XR) 75 mg Capsule, Sust. Release 24 hr TAKE 1 CAPSULE BY MOUTH ONCE DAILY TO BE TAKEN WITH 150MG CAPSULE FOR TOTAL DOSE OF 225MG DAILY 03/30/2021 Active venlafaxine (EFFEXOR-XR) 150 mg Capsule, Sust. Release 24 hr 09/11/2021 Active Wegovy 2.4 mg/0.75 mL Pen Injector 01/27/2022 Active ondansetron (Zofran) 8 mg Tablet Take 8 mg by mouth every 6 hours as needed. 01/16/2022 Active lamoTRIgine (LaMICtal) 25 mg Tablet TAKE 1 TABLET BY MOUTH DAILY X 1 WEEK, THEN INCREASE TO 1 TAB TWICE DAILY X 1 WEEK, THEN 2 IN AM AND 1 IN PM X 1 WEEK, THEN 2 TWICE DAILY 01/28/2022 Active Emgality Syringe 120 mg/mL Syringe 01/02/2022 Active riboflavin, Vitamin B2, (Vitamin B2) 100 mg Tablet Take by mouth Daily. Takes 2 tablets in am and 2 tablets in pm Active oxyCODONE (Roxicodone) 5 mg tablet Take 1 tablet by mouth every 4 hours as needed for Pain. 30 tablet 07/01/2022 Active senna-docusate (Pericolace) 8.6-50 mg Tablet Take 1 tablet by mouth daily. 60 tablet 07/01/2022 Active polyethylene glycoL (Miralax) 17 gram oral powder packet Take 17 g by mouth daily. 14 each 07/01/2022 Active amoxicillin-clavula [place] (Augmentin) 875-125 mg Tablet Take 1 tablet by mouth 2 times daily. 10 tablet 07/01/2022 Active Additional Information Patient not taking.Reported on 09/13/2022 Active Problems Problem Noted Date Diagnosed Date History of perforation of tympanic membrane 08/2022 Generalized osteoarthritis of hand 04/14/2022 Primary osteoarthritis of fi rst carpometacarpal joint of left hand 04/14/2022 S/p right basal joint suspen natty arthroplasty 07/01/22 [place] 04/14/2022 Anxiety disorder 02/18/2022 Depression 02/18/2022 Hypertension 02/18/2022 Migraines 02/18/2022 Obesity 02/18/2022 Opioid use 02/18/2022 Bilateral hip bursitis 02/18/2022 Cervicalgia 02/18/2022 Snoring 10/09/2021 ETD (Eustachian tube dysfunction), bilateral 04/2021 Sensorineural hearing loss (SNHL) of both ears 0 10/09/2021 Tympanosclerosis of both ears 10/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 no 07/01/2022 Feels Threatened by Someone no 06/10 Feels Unsafe at Home or Work/School no 07/01/2022 Physical Signs of Abuse Present no 07/01/2022 Sex and Gender Information Value Date Recorded Sex Assigned at Not on file Gender Identity Not on file Sexual Orientation Not on file Last Filed Vital Signs Vital Sign Reading Time Taken Comments Blood Pressure 128/84 09/13/2022 9:33 AM EDT Pulse 82 09/13/2022 9:33 AM EDT Temperature 36.8 ??C (98.3 ??F) 09/13/2022 9:33 AM ED T Respiratory Rate 16 07/01/2022 5:19 PM EDT Oxygen Saturation 98% 09/13/2022 9:33 AM EDT Inhaled Oxygen Concentration - - Weight 97.1 kg (214 lb) 10/13/2022 8:46 AM EDT Height 172.7 cm (5' 8 ) 10/13/2022 8:46 AM EDT Body Mass Index 32.54 10/13/2022 8:46 AM EDT Plan of Treatment Health Maintenance Due Date Last Done Comments CT Colonography 1965 Colonoscopy 1965 Colorectal Cancer Screening 1965 FIT DNA 1965 FIT 1965 Sigmoidoscopy (10 year) with FIT yearly 1965 Sigmoidoscopy 1965 HIV screen 12/25/1983 Hepatitis C Screening 12/25/1983 Lipid Screening 12/25/1983 Hepatitis A vaccine 0-18 yrs and Risk (1 of 2 - Risk 2-dose series) 1984 Hepatitis B vaccine (0-59 yrs) and Risk (1) 1984 Pneumoccocal Vaccine: 50+ (1 of 2 - PCV) 1984 Tetanus/Diphtheria/Pertussis Vaccines (1 - Tdap) 12/24 HPV test 12/25/1995 PAP Smear 12/25/1995 Breast Cancer Share Decision Needed 2005 Breast Cancer screening 2005 Diabetes Screening (HgbA1C or Glucose) 2005 Zoster vaccine (1 of 2) 12/25/2015 Advance Directive 2020 Covid-19 Vaccine (1 - season) 2023 Influenza (Flu) vaccine (1 o f 1 - Influenza standard series) 12/11/2023 Procedures Procedure Name Priority Date/Time Associated Diagnosis Comments XR ANKLE MIN 3 VIEWS LEFT STAT 07/07/2024 8:08 PM EDT from Last 3 Months Results * XR Ankle Min 3 views Left (Generic) (07/07/2024 8:08 PM EDT) PT CLASS E RAD ADMITDTTM [id number] [facility] PT RAD INFO [id number]^CURTI S^VICENTE RAD EXAM DESC XRANKMVL^XR Ankle 3 Views Min Lt^RIS [facility] WORKSTATION ID [id number] [facility] Anatomical Region Laterality Modality Ankle Left Radiographic Tiffanie ging 07/07/2024 8:08 PM EDT Impressions 07/07/2024 8:14 PM EDT Possible dorsal avulsion fracture from the talus versus chronic abnormality. Please correlate with site of focal tenderness Thank you for letting us participate in the care of this patient. ??If you are a health care provider and have any questions regarding this report, please contact the number below. ??For patients who have questions please contact the health customer care representative that requested your imaging first. ? Narrative 07/07/2024 8:14 PM EDT EXAMINATION: XR Ankle 3 Views Min Lt CLINICAL HISTORY: fall TECHNIQUE: views COMPARISON: None FINDINGS: Small linear corticated irregularity projected superior to the talar head, dislocation or other acute osseous abnormality identified. Soft tissues are within normal limits No joint effusion. Mortise joint is intact calcifications in the plantar fascia consistent with plantar fasciitis Procedure Note Rachael Snow MD - 07/07/2024 EXAMINATION: XR Ankle 3 Views Min Lt CLINICAL HISTORY: fall TECHNIQUE: views COMPARISON: None FINDINGS: Small linear corticated irregularity projected superior to the talarhead, dislocation or other acute osseous abnormality identified. Soft tissuesare within normal limits No joint effusion. Mortise joint is intact calcifications in the plantarfascia consistent with plantar fasciitis IMPRESSION Possible dorsal avulsion fracture from the talus versus chronicabnormality. Please correlate with site of focal tenderness Thank you for letting us participate in the care of this patient. If youare a health care provider and have any questions regarding this report,please contact the number below. For patients who have questions please contactthe health customer care representative that requested your imaging first. Vicente Mandujano Jr., MD IMG DX ORDERABLES from Last 3 Months Care Teams Allergy And Immunology Specialist Relationship Specialty Start Date End Date Jennifer Gordillo APRN [address] [place] [address] PCP - General Family Medicine 10/09/21
[2024-07-24 07:56] VITALS: PULSE 77; O2SAT 100; BMI 28.9
== END 2024-07-24 08:14 | disposition home or self-care (01) ==
LOC: HO.HSMS 07:52
PROVIDERS: PCP Nurse Practitioner Adult Health; Visit Provider Psychiatry & Neurology Neurology
DX: G43.719 Chronic migraine without aura, intractable, without status migrainosus (principal)
CPT/HCPCS: 64615

== ENCOUNTER → 2024-07-24 07:51 | Outpatient (BNVA) | payer BC, SELFPAY | PROVIDERS: PCP Nurse Practitioner Adult Health; Visit Provider Psychiatry & Neurology Neurology | DX: G43.719 Chronic migraine without aura, intractable, without status migrainosus (principal) | CPT/HCPCS: 64615; 99211; J0585 ==

== ENCOUNTER 2024-10-23 08:03 | Outpatient (AMB) | payer BC, SELFPAY ==
--- OUTSIDE RECORDS SUMMARY | 2024-01-13 07:54 | XMS_ITS | Encounter Summary ---
Author Organization [facility] Address [address] [place] [address] Care Team Providers Care Clinical Instructor Name Role Phone Unavailable Primary Care Provider Unavailabl e Encounter Details Date Type Department Care Team (Late st Contact Info) Description 01/13/2024 7:54 AM EDT Hospital Encounter TH HISTORIC ENCOUNTERS EASTERN CONVERSION ONLY Saroj Melton MD [address] [facility] [address] [place] [address] Social History Tobacco Use Types Packs/Day Years Used Date Smoking Tobacco: Never Assessed Comments Unknown Sex and Gender Information Value Date Recorded Sex Assigned at Not on file Legal Sex Female 9:52 AM EST Gender Identity Not on file Sexual Orientation Not on file documented as of this encounter Last Filed Vital Signs Vital Sign Reading Time Taken Comments Blood Pressure 131/93 01/13/2024 8:15 AM EDT Sit ting Left arm Pulse 80 01/13/2024 8:15 AM EDT Temperature - - Respiratory Rate - - Oxygen Saturation - - Inhaled Oxygen Concentration - - Weight 93.4 kg (206 lb) 01/13/2024 8:15 AM EDT Height 172.7 cm (5' 8 ) 01/13/2024 8:15 AM EDT Body Mass Index 31.32 01/13/2024 8:15 AM EDT documented in this encounter Progress Notes * Saroj Melton MD - 01/13/2024 8:00 AM EDT HPI: Mary Kate Castro is a 58 y.o. year old female referred to our center by No primary care provider on file. for evaluation and management of white matter lesion found incidentally on brain MRI For worsening headaches Interval history Patient is here for follow up No new neurological symptom concerning for demyelination since last visit Patient denies any new symptoms denies any blurry vision double vision tingling numbness or weakness Since last visit she had her second round of Botox with marked improvement in her headache frequency also her overall clinical picture she thinks her fatigue has markedly improved She has scar tissue in her left ear and fluid in ear frequent infections since childhood she has occasional vertigo in relation to Denies any change in her bowel or bladder function Discussed with the patient did not obtain her MRI brain yet she got a phone call from [facility] to pick it we will review once she pick it and drop to our clinic Reviewed and discussed lab results with negative inflammatory markers negative Lyme disease discussed with the patient high level of vitamin D she will cut into once a day instead of twice a day 5000international units HPI 57 yo PMH female with PMH HTN before gastric bypass was uncontrolled blood pressure , bladder cancer 2013 , she is cancer free since 2013 , depression managed by PCP and well control , Migraine , Nurtec prevention and rizatriptan , Botox injection recently started, she is [facility] with better control currently with her current medication regimen Patient was referred to our clinic due to MRI brain was done due to worsening headache was reportedas increased T2 lesions compared to she was diagnosed with MS 20 years ago, at that time she presented s with tingling Rt shoulder and arm without weakness or any other associated symptoms, she was evaluated by neurology she had MRI brain done was found to have multiple lesions , she also had LP and evoked potential test unsure about the test results, and was diagnosed with MS and was started on copaxone , she was then d/c as she was evaluated with another neurology and more workup was done andafter evaluation her lesions was thought to be more nonspecific so she stopped treatment since thenand they revoked the diagnosis of multiple sclerosis, last MRI was done in 2019 with subcortical white matter lesions patient follows up for migraine headaches with [facility] she had an MRI brain follow-up due to worsening headaches MRI brain with T2 lesions increased compared to 2019 Reviewing any other neurological symptoms she would occasionally have Vertigo , happen 2 wks ago her symptoms last for days at a time and then resolve on its own She does experience joint pain and neck pain Active Symptoms: Bowel/bladder:she does experience urgency and frequency all happened since bladder cancer Depression/anxiety: depression managed by PCP Gait impairment: she has no marked limitation , she has been slowly declining in her ambulatory capacity Fatigue: she has excessive fatigue waking up in the middle of the day Taking vitamin D supplementation: yes, dose: 5000 IU daily Heat Sensitivity:no Past or present Lhermitte's: no Social history: Tobacco: 2 cigarettes a day , former heavy smoker 2+ pack a day Alcohol socially Drug use:No Exercise habits: she has sedentary life 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 Neurologic Exam: BP (!) 131/93 (BP Location: Left arm, Patient Position: Sitting) Pulse 80 Temp 96.9 ??F (36.1 ??C) (Temporal) Ht 5' 8 (1.727 m) Wt 93.4 kg (206 lb) BMI 31.32 kg/m?? MS: AOx3 CN: perrla,V1-3 intact to LT, face symmetric, bilateral SCM/trapezius 5/5, tongue/uvula/palate midline Motor: 5/5 in all extremities Sensation: Intact to light touch, temperature, and vibration in all extremities Reflexes: 2+ in bilateral biceps and patellae, toes downgoing bilaterally Cerebellar: FNF intact bilaterally, FFM intact bilaterally, RICHARD intact bilaterally, tandem gait normal, romberg negative Labs: Reviewed available labs Lyme negative SSA SSB negative MOG antibody negative AQP 4 antibody negative vitamin D above 100 Imaging: All images were reviewed by me. MRI brain: MRI brain 2019 A/P: Mary Kate Castro is a 58 y.o. year old female referred to our center by No primary care provider on file. for evaluation and management of white matter lesion in the setting of an old MS diagnosis concern for increased lesion: New MRI brain in 2023 compared to 2019. Based on the clinical history, neurologic exam, and imaging, I do think junior patient symptom was mostly the initial symptom withthe right upper extremity tingling and numbness that after analysis and review that was attributed for nerve impingement in relation to cervical disease. I would like to obtain MRI of the brain done which were not able to obtain its yet patient to get the disc from [facility] and reviewed if there is c oncerning T2 lesions we will obtain MRI cervical, and thoracic spine to assess the current disease burden. I would also like to check bloodwork for MS mimickers. We have discussed the array of services the [facility] has to offer patients and I have recommended the following as listed below. Plan was discussed with the patient Discussed with the patient did not obtain her MRI brain yet shegot a phone call from [facility] to pick it we will review once she pick it and drop to ourclinic Will obtain MRI brain done recently and 2019 to review -If MRI brain concerning we will order MRI C/T spine with and without contrast to assess current disease burden Discussed with the patient high level of vitamin D to decrease vitamin D supplements Symptomatic management Migraine: Continue follow-up with: Neurology continue Botox and Nurtec -RTC [id number] for follow up The patient and I discussed the clinical picture during today's appointment. Additional time was spent prior to the actual appointment reviewing records, lab values and imaging results and preparing documentation for today's visit. There was also time spent following the in person visit documenting, arranging for further diagnostic testing and follow-up appointments. The entire time spent in thisprocess was greater than 30 minutes. The majority of the actual egax-cx-cerx visit was spent counseling the patient with respect to the current neurological picture. Saroj Melton MD documented in this encounter Plan of Treatment Not on file documented as of this encounter Visit Diagnoses Not on filedocumented in this encounter
[2024-10-23 08:05] VITALS: BP 100/68; PULSE 96; O2SAT 97; BMI 28.4
--- NOTE | 2024-10-23 08:05 | MHC.OFFVIS ---
Vital Signs 10/23/24 08:05 Height 5 ft 8 in Weight 187 lb BMI 28.4 BP 100/68 Blood Pressure Location Rt brachial Position Sitting Pulse 96 Pulse Source Pulse Oximeter Pulse Oximetry (%) 97 Oxygen Delivery Method Room Air Intake Visit Reasons: Botox Allergies aspirin Allergy (Severe, Verified 10/23/24 08:06) Hives Penicillins Allergy (Severe, Verified 10/23/24 08:06) Hives sumatriptan (From Imitrex) Allergy (Severe, Verified 10/23/24 08:06) Agitated prochlorperazine (From Compazine) Allergy (Verified 10/23/24 08:06) Agitated Medication List - Last Reconciled 10/23/24 by Sindy Cesar MD alprazolam 0.5 mg PO DAILY cyclobenzaprine 10mg bid and 20mg qhs orally 3 times a day; 30 days meclizine 25 mg PO DAILY PRN omeprazole 20 mg PO DAILY onabotulinumtoxinA (Botox) 200 units IM ONCE 12 weeks ondansetron HCl 8 mg PO Q12H oxycodone-acetaminophen 7.5-300 mg 1 tab PO Q8H PRN rimegepant (Nurtec ODT) 75 mg PO ONCE PRN 30 days MDD 1 tab trazodone 100 mg PO BEDTIME PRN HPI Comments Details: ? 58y/o female comes for treatment of migraines with botox. Number of migraine days before botox 20-30/month Number of migraine days after botox -10/month ER viists - none Intensity - decreased with botox Last treatment- 3mths ago ??? Most frequent reported adverse reactions following injection of botox for chronic migraine include neck pain (9%), headache(5%), eyelid ptosis(4%), migraine(4%), muscular weakness(4%), musculuskeletal stiffness(4%), bronchitis(3%), injection site pain (3%), musculoskeletal pain(3%), myalgia(3%), facial paresis(2%), HTN(2%) and muscle spasms(2%) were discussed in detail. ??? Botulinum toxin typeA 200units Lot no [id number] Jan 2027 was diluted with 4 cc of normal saline . ??? Muscles injected- ??? Frontalis 4 sites ??? Procerus 1 site ??? Coal Bagger- 2 sites ??? Temporalis- 8 sites ??? Occipitalis- 6 sites ??? Cervical paraspinals- 4 sites ??? Trapezius- 6 sites- 5 units each ??? 5 units each in 31 site ??? Total use- 155units ??? Discarded-15units PFSH Surgical History H/O arthroscopic knee surgery H/O: hysterectomy Family History Father HTN (hypertension) Diabetes Mother HTN (hypertension) Thyroid condition Brother HTN (hypertension) Social History Alcohol intake: never Patient Tobacco Use Status: Current everyday Tobacco user Physical Exam Vital Signs: Last Vital Signs Pulse 96 10/23/24 08:05 BP 100/68 10/23/24 08:05 Pulse Ox 97 10/23/24 08:05 Oxygen Delivery Method Room Air 10/23/24 08:05 BMI result Body Mass Index 28.4 Const General: cooperative and no acute distress Orientation/consciousness: patient oriented x3 Resp Effort & Inspection: normal respiratory effort and able to speak in complete sentences Neuro General: patient oriented x3 Cognition (Neuro): normal cognition Psych Appearance: grossly normal Mental Status: mental status grossly normal Speech and movement: Clear speech present Affect: normal affect Attitude: cooperative Office Procedures Botulinum toxin Injection 48039 - Migraine Procedure code (CPT) selection complete Office Meds onabotulinumtoxinA 200 unit solution for injection Performing Provider: Sindy Cesar MD Performing Location: [facility] [place] [facility] Administered by: Sindy Cesar MD on 10/23/24 08:34 Dose Route Admin Location Dispensed Lot Number Expiration Date [facility] Molding Room Supervisor 155 unit subcut 200 units [id number] ALLERGAN/BOTOX Total Dispensed Waste 200 units 22.5 % Comments: see HPI Assessment & Plan Assessment & Plan (1) Chronic migraine without aura: Code(s): G43.709 - Chronic migraine without aura, not intractable, without status migrainosus Category: Medical Qualifiers: Status migrainosus presence: without status migrainosus Intractability: intractable Qualified Code(s): G43.719 - Chronic migraine without aura, intractable, without status migrainosus Plan Patient tolerated the procedure well she will call with any side effects Orders: Orders AMB Botulinum toxin Injection - Patient Supplied N/C Today G43.719 - Chronic migraine without aura, intractable, without status migrainosus Coding Level of Care Code Est Pt Level 1 (15265) Diagnoses Intractable chronic migraine without aura and without status migrainosus G43.719 Status migrainosus presence: without status migrainosus Intractability: intractable CPT Codes Botox Injection - Botox 3: 42331 - Migraine ([id number])
--- OUTSIDE RECORDS SUMMARY | 2024-10-23 08:07 | XMS_ITS | Clinical Summary ---
Author Organization [facility] Address [address] [place] [address] Care Team Providers Care Business Transformation Analyst Name Role Phone Unavailable Primary Care Provider [...] 80 01/13/2024 8:15 AM EDT Temperature 36.1 C (96.9 F) 01/13/2024 8:15 AM EDT Respiratory Rate - - Oxygen Saturation 96% [...] (1 of 2) 12/25/2015 Influenza Vaccine (#1) 2024 3, 12/30/2021, 03/24/2021, Additional history exists DTap [...]
--- OUTSIDE RECORDS SUMMARY | 2024-10-23 08:07 | XMS_ITS | Patient Health Record ---
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
--- OUTSIDE RECORDS SUMMARY | 2024-10-23 08:07 | XMS_ITS | Clinical Summary ---
Author Organization [facility] [place] [address] Care Team Providers Care Ophthalmic Aide Name Role Phone Nery Gordilloanna Hank BOLIVAR Primary Care Provider [phone] Allergies Active Allergy Reactions Criticality Noted Date Comments Aspirin Hives Medium 04/29/2017 Codeine Hives Low 04/29/2017 Penicillins Hives Low 04/29/2017 Prochlorperazine Low 04/29/2017 Other reaction(s): Other (See Comments) restlessness Sumatriptan Succinate Palpitations Medium 04/29/2017 Chest pain Medications ALPRAZolam (Xanax) 0.25 mg Tablet Take 1 tablet by mouth 3 times daily as needed. 2 Active atenoloL (Tenormin) 50 mg Tablet Take 1 tablet by mouth daily. 1 Active baclofen (Lioresal) 10 mg Tablet TAKE ONE AND ONE-HALF TABLETS FOUR TIMES A DAY 2 Active cholecalciferol (Vitamin D3) 1,000 unit Tablet Take 1,000 Units by mouth Daily. Active cyanocobalamin, Vitamin B-12, 1,000 mcg/mL Solution Inject 1,000 mcg into the muscle. 2 Active diclofenac (Voltaren) 1 % Gel APPLY 4 GRAMS TOPICALLY TO AFFECTED AREA 4 TIMES DAILY FOR 14 DAYS 2 Active Fluocinolone Acetonide Oil (DermOtic Oil) 0.01 % Drops as needed. 2 Active multivitamin with minerals (CENTRUM) 9 mg iron/15 mL Liquid Take 15 mLs by mouth Daily. Active nystatin (Mycostatin) Cream as needed. 2 Active omeprazole (PriLOSEC) 20 mg Capsule, Delayed Release(E.C.) daily. 2 Active promethazine (PHENERGAN) 12.5 mg Tablet Take 12.5 mg by mouth Every 6 hours as needed. 1 Active rizatriptan (MAXALT) 10 mg Tablet TAKE ONE TABLET BY MOUTH AT ONSET OF HEADACHE - MAY REPEAT IN TWO HOURS IF NEEDED - MAX OF 2 TABLETS PER 24 HOURS OR 6 TABLETS PER WEEK 2 Active Syringe with Needle, Disp, (BD Luer-Ploo Syringe) 3 mL 25 x 1 1/2 Syringe USE TO INJECT MEDICATION EVERY 30 DAYS 0 Active BD Luer-Polo Syringe 3 mL 25 x 5/8 Syringe 2 Active traZODone (Desyrel) 100 mg Tablet TAKE 1 TABLET NIGHTLY AT BEDTIME 1 Active varenicline (Chantix) 1 mg Tablet TAKE 1 TABLET BY MOUTH TWICE DAILY WITH MEALS AND A FULL GLASS OF WATER 2 Active venlafaxine XR (Effexor-XR) 75 mg Capsule, Sust. Release 24 hr TAKE 1 CAPSULE BY MOUTH ONCE DAILY TO BE TAKEN WITH 150MG CAPSULE FOR TOTAL DOSE OF 225MG DAILY 1 Active venlafaxine (EFFEXOR-XR) 150 mg Capsule, Sust. Release 24 hr 2 Active Wegovy 2.4 mg/0.75 mL Pen Injector 2 Active ondansetron (Zofran) 8 mg Tablet Take 8 mg by mouth every 6 hours as needed. 2 Active lamoTRIgine (LaMICtal) 25 mg Tablet TAKE 1 TABLET BY MOUTH DAILY X 1 WEEK, THEN INCREASE TO 1 TAB TWICE DAILY X 1 WEEK, THEN 2 IN AM AND 1 IN PM X 1 WEEK, THEN 2 TWICE DAILY 2 Active Emgality Syringe 120 mg/mL Syringe 2 Active riboflavin, Vitamin B2, (Vitamin B2) 100 mg Tablet Take by mouth Daily. Takes 2 tablets in am and 2 tablets in pm Active oxyCODONE (Roxicodone) 5 mg tablet Take 1 tablet by mouth every 4 hours as needed for Pain. 30 tablet 3 Active senna-docusate (Pericolace) 8.6-50 mg Tablet Take 1 tablet by mouth daily. 60 tablet 3 Active polyethylene glycoL (Miralax) 17 gram oral powder packet Take 17 g by mouth daily. 14 each 3 Active amoxicillin-cla vulanate (Augmentin) 875-125 mg Tablet Take 1 tablet by mouth 2 times daily. 10 tablet 3 Active Additional Information Patient not taking.Reported on [...] Encounters Date Type Department Care Team Description 10/02/2024 Interpretation Only [address] [phone] Summer Worrell, DPM Pain in left foot; Pain in left foot 09/04/2024 Interpretation Only [address] [phone] Summer Worrell, DPM Pain in left foot; Pain in left foot 08/27/2024 Interpretation Only [address] [phone] Sada Correa PA 08/22/2024 Interpretation Only [address] [place] [phone] Summer Worrell DPM Pain in left ankle and joints of left foot 08/22/2024 Interpretation Only [address] [place] [phone] Summer Worrell DPM Sprain of unspecified ligament of left ankle, initial encounter; Pain in left foot 08/16/2024 Interpretation Only [address] [place] [phone] Marquez Davis MD Unilateral primary osteoarthritis, left knee 07/25/2024 Interpretation Only [address] [place] [phone] Marquez Davis MD Pain in left knee; Pain in left knee from Last 3 Months Social History Tobacco Use Types Packs/Day Years Used Date Smoking Tobacco: Every Day Cigarettes Smokeless Tobacco: Never Tobacco Cessation:Ready to Q uit: Not Asked; Counseling Given: Not Answered Alcohol Use Standard Drinks/Week Comments Not Currently 0 (1 standard drink = 0.6 oz pur e alcohol) DH IPV Inpatient Questions Answer Date Recorded Does Anyone Try to Keep You From Having Contact with Others or Doing Things Outside Your Home? no 07/01/2022 Feels Threatened by Someone no 06/10 Feels Unsafe at Home or Work/School no 07/01/2022 Physical Signs of Abuse Present no 07/01/2022 Comments Unknown Sex and Gender Information Value Date Recorded Sex Assigned at Not on file Legal Sex Female 7:57 PM EDT Gender Identity Not on file Sexual Orientation Not on file Last Filed Vital Signs Vital Sign Reading Time Taken Comments Blood Pressure 128/84 09/13/2022 9:33 AM EDT Pulse 82 09/13/2022 9:33 AM EDT Temperature 36.8 C (98.3 F) 09/13/2022 9:33 AM EDT Respiratory Rate 16 07/01/2022 5:19 PM EDT [...] o f 1 - Influenza standard series) 12/10/2024 Procedures Procedure Name Priority Date/Time Associated Diagnosis Comments XR FOOT MIN 3 VIEWS LEFT Routine 10/02/2024 9:09 AM EDT Pain in left foot XR FOOT MIN 3 VIEWS LEFT Routine 09/04/2024 8:51 AM EDT Pain in left foot XR KNEE AP LAT AXIAL PATELLA LEFT Routine 08/27/2024 3:30 PM EDT MRI LOWER EXTREMITY NON-JOINT WO CONTRAST LEFT Routine 08/22/2024 3:52 PM EDT Pain in left ankle and joints of left foot MRI LOWER EXTREMITY JOINT WO CONTRAST LEFT Routine 08/22/2024 3:52 PM EDT Sprain of unspecified ligament of left ankle, initial encounter Pain in left foot CT LOWER EXTREMITY WO CONTRAST LEFT Routine 08/16/2024 3:10 PM EDT Unilateral primary osteoarthritis, left knee XR KNEE 4 OR MORE VIEWS LEFT Routine 07/25/2024 11:11 AM EDT Pain in left knee from Last 3 Months Results * XR Foot Min 3 views Left (Standard) (10/02/2024 9:09 AM EDT) Only the most recent of2 resultswithin the time period is included. PT CLASS O RAD ADMITDTTM [id number] RAD PT [facility] MD INFO [id number]^Lakha ni^Rahim RAD EXAM DESC [id number]^XR Foot 3 Views Min Lt^RIS [facility] WORKSTATION ID [id number] [facility] Anatomical Region Laterality Modality Foot Left Radiographic Tiffanie ging 10/02/2024 9:09 AM EDT Impressions 10/02/2024 9:16 AM EDT Nondisplaced healing fractures of the fifth metatarsal. Healing fracture of the fourth and third metatarsals. Thank you for letting us participate in the care of this patient. If you are a health care provider and have any questions regarding this report, please contact the number below. For patients who have questions please contact the health direct care professional that requested your imaging first. Narrative 10/02/2024 9:16 AM EDT EXAMINATION: XR Foot 3 Views Min Lt CLINICAL HISTORY: Left foot pain;M79.672 Pain in left foot TECHNIQUE: 3 views of the left foot, weightbearing. COMPARISON: 09/04/2024 FINDINGS: Acute fracture or dislocation. There is healing nondisplaced fracture of the fifth metatarsal. Healing fracture of the base of the fourth and third metatarsals are also identified. The alignment remains stable. There is no evidence of new fracture or dislocation. Procedure Note Dung Girard MD - 10/02/2024 EXAMINATION: XR Foot 3 Views Min Lt CLINICAL HISTORY: Left foot pain;M79.672 Pain in left foot TECHNIQUE: 3 views of the left foot, weightbearing. COMPARISON: 09/04/2024 FINDINGS: Acute fracture or dislocation. There is healing nondisplaced fracture ofthe fifth metatarsal. Healing fracture of the base of the fourth and third metatarsals are also identified. The alignment remains stable. There isno evidence of new fracture or dislocation. IMPRESSION Nondisplaced healing fractures of the fifth metatarsal. Healing fracture of the fourth and third metatarsals. Thank you for letting us participate in the care of this patient. If youare a health care provider and have any questions regarding this report,please contact the number below. For patients who have questions please contactthe health direct care professional that requested your imaging first. Summer Worrell DP IMG DX ORDERABLES Final Result * XR Knee 3 Views Left (08/27/2024 3:30 PM EDT) PT CLASS O RAD ADMITDTTM [id number] [facility] PT [facility] INFO [id number]^Johanna coroneler^Marquez^D RAD EXAM DESC [id number]^XR Knee 3 Views Left^RIS [facility] WORKSTATION ID [id number] RAD Anatomical Region Laterality Modality Knee Left Radiographic Tiffanie ging 08/27/2024 3:30 PM EDT Impressions 08/27/2024 4:15 PM EDT Status post total left knee arthroplasty. Thank you for letting us participate in the care of this patient. If you are a health care provider and have any questions regarding this report, please contact the number below. For patients who have questions please contact the health direct care professional that requested your imaging first. Narrative 08/27/2024 4:15 PM EDT EXAMINATION: XR Knee 3 Views Left CLINICAL HISTORY: s/p left TKA FINDINGS: 3 weight-bearing views of the left knee were obtained and compared to the prior exam of 07/25/2024. The patient is post total left knee arthroplasty. There is no evidence of fracture or dislocation. The femoral and tibial components are well positioned. There is postsurgical air in the soft tissues. Procedure Note Dung Girard MD - 08/27/2024 EXAMINATION: XR Knee 3 Views Left CLINICAL HISTORY: s/p left TKA FINDINGS: 3 weight-bearing views of the left knee were obtained andcompared to the prior exam of 07/25/2024. The patient is post total left kneearthroplasty. There is no evidence of fracture or dislocation. The femoral and tibial components are well positioned. There is postsurgical air in the softtissues. IMPRESSION Status post total left knee arthroplasty. Thank you for letting us participate in the care of this patient. If youare a health care provider and have any questions regarding this report,please contact the number below. For patients who have questions please contactthe health direct care professional that requested your imaging first. us Marquez Davis MD IMG DX ORDERABLES Final Resu lt * MRI Lower Extremity Non-Joint Wo Contrast Left (08/22/2024 3:52 PM EDT) PT CLASS O RAD ADMITDTTM [id number] RAD PT RAD INFO [id number]^Lakha ni^Rahim RAD EXAM DESC MRLEWOL^MRI LE Non Joint w/o Contrast Left^RIS [facility] WORKSTATION ID [id number] [facility] Anatomical Region Laterality Modality Other 08/22/2024 3:52 PM EDT Impressions 08/23/2024 4:26 PM EDT 1. 5th metatarsal neck fracture. Other lateral ankle and foot pain generators include peroneus brevis fraying and Mcgee neuropathy. 2. Other forefoot pain generators include 2nd and 3rd intermetatarsal space bursitis. 3. Healing insufficiency fractures at the base of the 3rd and 4th metatarsals. 4. Healing avulsion fracture of the dorsal talar neck with sprain/injury of the dorsal talonavicular ligament. Other sources of dorsal foot pain include extensor digitorum longus tenosynovitis. 5. Medial ankle and foot pain generators include posterior tibial tenosynovitis. 6. Possible plantar foot and ankle pain generators include sequela of prior plantar fascia injury. 7. 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 Other midfoot pain generators include possible calcium hydroxyapatite deposition between the middle and lateral cuneiform versus sequela of old trauma or small intra-articular bodies. Thank you for letting us participate in the care of this patient. If you are a health care provider and have any questions regarding this report, please contact the number below. For patients who have questions please contact the health direct care professional that requested your imaging first. Narrative 08/23/2024 4:26 PM EDT EXAMINATION: MRI LE Joint w/o Contrast Left, MRI LE Non Joint w/o Contrast Left CLINICAL HISTORY: Sprained ankle;S93.402A Sprain of unspecified ligament of left ankle, init (as entered by ordering provider in the order requisition) TECHNIQUE: Routine MR of the left ankle was performed without contrast using a routine ankle protocol. Sequences include axial T1, axial T2 with fat saturation, coronal T2 with fat saturation, coronal oblique proton density, sagittal proton density, and sagittal STIR. MR of the left midfoot was performed without IV contrast. Sequences include sagittal T1, sagittal proton density, short axis proton density, short axis TII with fat saturation, long axis TI, long axis fat saturation. COMPARISON: CT of the left leg August 16, 2024. Left ankle radiograph July 07, 2024. FINDINGS: Ankle: Tendons: The Achilles tendon is normal in morphology and signal. Small ossicles within the substance of the central band of the plantar fascia, consistent with sequela of old injury. The medial flexor, peroneal flexor, and anterior extensor tendons are intact. Mild fluid distention of the posterior tibial tendon. Fraying of the peroneus brevis tendon without a discrete tear. Ligaments: The anterior talofibular and posterior talofibular ligaments are intact. The calcaneofibular ligament is intact. Anterior tibiofibular and posterior tibiofibular ligaments are intact. The deep deltoid ligament fibers are intact. The tibial spring and spring ligament are intact. The dorsal talonavicular and calcaneocuboid ligaments are intact. The dorsal, interosseous, and plantar components of the Lisfranc ligament are intact. Bones, cartilage, joints: Focal bone marrow edema along the dorsal talar neck with thickening of the dorsal talonavicular ligament. No osteochondral lesion. Focal full-thickness cartilage loss at the middle subtalar joint with subchondral cystic change and subchondral edema along the talar side (series 4, image 9). Full-thickness cartilage loss at the calcaneocuboid joint with subchondral edema of both sides of the joint (series 4, image 16). Cartilage at the talonavicular joint is preserved, but there are marginal osteophytes with subchondral edema. Subchondral edema at the naviculocuneiform joint with subchondral cystic change and focal high-grade cartilage loss is consistent with osteoarthropathy. Subchondral cystic change and subchondral edema of the 3rd, 4th, and 5th tarsometatarsal joints. High-grade cartilage loss at the 1st tarsometatarsal joint and 2nd tarsometatarsal joint. Trace tibiotalar and subtalar joint effusions. Small hypointense foci interposed between the middle and lateral cuneiform (series 6, image 10, with surrounding edema could represent calcium hydroxyapatite deposition, small intra-articular bodies, or sequela of old trauma. Muscles and soft tissues: A fatty replacement of the abductor digiti minimi muscle. Remaining muscles are normal in bulk and signal. Normal fat signal in the sinus tarsi. No solid or cystic compressive lesion in the tarsal tunnel. Forefoot: Bones and joints: There is an oblique fracture of the 5th metatarsal neck. There is surrounding bone marrow edema and periostitis. Focal bone marrow focal T1 hypointense bandlike marrow signal change at the base of the 4th metatarsal (series 5, image 7), with mild edema is consistent with a healing insufficiency fracture. Band of T1 hypointense signal at the base of the 3rd metatarsal with mild associated T2 hyperintense signal (series 7, image 11), consistent with healing insufficiency fracture. Full-thickness cartilage loss of the 1st toe interphalangeal joint and 1st metatarsophalangeal joint. There is associated subchondral cystic change of chondral edema at both of these joints, consistent with osteoarthropathy. Ligaments: The dorsal, interosseous, and plantar components of the Lisfranc ligament are intact. Tendons: Visualized flexor and extensor tendons are intact. Mild fluid distention of the extensor digitorum longus tendons, consistent with tenosynovitis. Muscles: Normal bulk and signal of the muscles of the forefoot. Other soft tissues: No solid nodule in the intermetatarsal spaces. There is fluid in the 2nd and 3rd intermetatarsal spaces, consistent with bursitis. Procedure Note Marnie Leggett MD - 08/23/2024 EXAMINATION: MRI LE Joint w/o Contrast Left, MRI LE Non Joint w/o ContrastLeft CLINICAL HISTORY: Sprained ankle;S93.402A Sprain of unspecified ligamentof left ankle, init (as entered by ordering provider in the order requisition) TECHNIQUE: Routine MR of the left ankle was performed without contrast using [facility] ankle protocol. Sequences include axial T1, axial T2 with fatsaturation, coronal T2 with fat saturation, coronal oblique proton density, sagittalproton density, and sagittal STIR. MR of the left midfoot was performed without IV contrast. Sequencesinclude sagittal T1, sagittal proton density, short axis proton density, shortaxis TII with fat saturation, long axis TI, long axis fat saturation. COMPARISON: CT of the left leg August 16, 2024. Left ankle radiograph July 07, 2024. FINDINGS: Ankle: Tendons: The Achilles tendon is normal in morphology and signal. Small ossicles within the substance of the central band of the plantarfascia, consistent with sequela of old injury. The medial flexor, peroneal flexor, and anterior extensor tendons areintact. Mild fluid distention of the posterior tibial tendon. Fraying of theperoneus brevis tendon without a discrete tear. Ligaments: The anterior talofibular and posterior talofibular ligamentsare intact. The calcaneofibular ligament is intact. Anterior tibiofibular and posterior tibiofibular ligaments are intact. The deep deltoid ligament fibers are intact. The tibial spring andspring ligament are intact. The dorsal talonavicular and calcaneocuboid ligaments are intact. The dorsal, interosseous, and plantar components of the Lisfranc ligamentare intact. Bones, cartilage, joints: Focal bone marrow edema along the dorsal talarneck with thickening of the dorsal talonavicular ligament. No osteochondrallesion. Focal full-thickness cartilage loss at the middle subtalar joint with subchondral cystic change and subchondral edema along the talar side(series 4, image 9). Full-thickness cartilage loss at the calcaneocuboid jointwith subchondral edema of both sides of the joint (series 4, image 16).Cartilage at the talonavicular joint is preserved, but there are marginal osteophyteswith subchondral edema. Subchondral edema at the naviculocuneiform joint with subchondral cysticchange and focal high-grade cartilage loss is consistent with osteoarthropathy. Subchondral cystic change and subchondral edema of the 3rd, 4th, and 5th tarsometatarsal joints. High-grade cartilage loss at the 1sttarsometatarsal joint and 2nd tarsometatarsal joint. Trace tibiotalar and subtalar joint effusions. Small hypointense foci interposed between the middle and lateralcuneiform (series 6, image 10, with surrounding edema could represent calcium hydroxyapatite deposition, small intra-articular bodies, or sequela ofold trauma. Muscles and soft tissues: A fatty replacement of the abductor digitiminimi muscle. Remaining muscles are normal in bulk and signal. Normal fat signal in the sinus tarsi. No solid or cystic compressive lesion in the tarsal tunnel. Forefoot: Bones and joints: There is an oblique fracture of the 5th metatarsal neck. There is surrounding bone marrow edema and periostitis. Focal bone marrow focal T1 hypointense bandlike marrow signal change atthe base of the 4th metatarsal (series 5, image 7), with mild edema is consistentwith a healing insufficiency fracture. Band of T1 hypointense signal at the base of the 3rd metatarsal withmild associated T2 hyperintense signal (series 7, image 11), consistent withhealing insufficiency fracture. Full-thickness cartilage loss of the 1st toe interphalangeal joint and1st metatarsophalangeal joint. There is associated subchondral cystic changeof chondral edema at both of these joints, consistent withosteoarthropathy. Ligaments: The dorsal, interosseous, and plantar components of theLisfranc ligament are intact. Tendons: Visualized flexor and extensor tendons are intact. Mild fluid distention of the extensor digitorum longus tendons, consistent with tenosynovitis. Muscles: Normal bulk and signal of the muscles of the forefoot. Other soft tissues: No solid nodule in the intermetatarsal spaces. Thereis fluid in the 2nd and 3rd intermetatarsal spaces, consistent withbursitis. IMPRESSION 1. 5th metatarsal neck fracture. Other lateral ankle and foot paingenerators include peroneus brevis fraying and Mcgee neuropathy. 2. Other forefoot pain generators include 2nd and 3rd intermetatarsalspace bursitis. 3. Healing insufficiency fractures at the base of the 3rd and 4thmetatarsals. 4. Healing avulsion fracture of the dorsal talar neck with sprain/injuryof the dorsal talonavicular ligament. Other sources of dorsal foot paininclude extensor digitorum longus tenosynovitis. 5. Medial ankle and foot pain generators include posterior tibial tenosynovitis. 6. Possible plantar foot and ankle pain generators include sequela ofprior plantar fascia injury. 7. 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 Other midfoot pain generators include possible calcium hydroxyapatitedeposition between the middle and lateral cuneiform versus sequela of old trauma orsmall intra-articular bodies. Thank you for letting us participate in the care of this patient. If youare a health care provider and have any questions regarding this report,please contact the number below. For patients who have questions please contactthe health direct care professional that requested your imaging first. us [employer] [employer]PIO PACS IMAGES Final Result * MRI LOWER EXTREMITY JOINT WO CONTRAST LEFT (08/22/2024 3:52 PM EDT) PT CLASS O DH RAD ADMITDTTM [id number] [facility] PT [facility] INFO [id number]^Riddhi ni^Rahim [facility] EXAM DESC MRLEJWOL^MRI LE Joint w/o Contrast Left^RIS [facility] WORKSTATION ID [id number] [facility] Anatomical Region Laterality Modality Other 08/22/2024 3:52 PM EDT Impressions 08/23/2024 4:26 PM EDT 1. 5th metatarsal neck fracture. Other lateral ankle and foot pain generators include peroneus brevis fraying and Mcgee neuropathy. 2. Other forefoot pain generators include 2nd and 3rd intermetatarsal space bursitis. 3. Healing insufficiency fractures at the base of the 3rd and 4th metatarsals. 4. Healing avulsion fracture of the dorsal talar neck with sprain/injury of the dorsal talonavicular ligament. Other sources of dorsal foot pain include extensor digitorum longus tenosynovitis. 5. Medial ankle and foot pain generators include posterior tibial tenosynovitis. 6. Possible plantar foot and ankle pain generators include sequela of prior plantar fascia injury. 7. 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 Other midfoot pain generators include possible calcium hydroxyapatite deposition between the middle and lateral cuneiform versus sequela of old trauma or small intra-articular bodies. Thank you for letting us participate in the care of this patient. If you are a health care provider and have any questions regarding this report, please contact the number below. For patients who have questions please contact the health direct care professional that requested your imaging first. Narrative 08/23/2024 4:26 PM EDT EXAMINATION: MRI LE Joint w/o Contrast Left, MRI LE Non Joint w/o Contrast Left CLINICAL HISTORY: Sprained ankle;S93.402A Sprain of unspecified ligament of left ankle, init (as entered by ordering provider in the order requisition) TECHNIQUE: Routine MR of the left ankle was performed without contrast using a routine ankle protocol. Sequences include axial T1, axial T2 with fat saturation, coronal T2 with fat saturation, coronal oblique proton density, sagittal proton density, and sagittal STIR. MR of the left midfoot was performed without IV contrast. Sequences include sagittal T1, sagittal proton density, short axis proton density, short axis TII with fat saturation, long axis TI, long axis fat saturation. COMPARISON: CT of the left leg August 16, 2024. Left ankle radiograph July 07, 2024. FINDINGS: Ankle: Tendons: The Achilles tendon is normal in morphology and signal. Small ossicles within the substance of the central band of the plantar fascia, consistent with sequela of old injury. The medial flexor, peroneal flexor, and anterior extensor tendons are intact. Mild fluid distention of the posterior tibial tendon. Fraying of the peroneus brevis tendon without a discrete tear. Ligaments: The anterior talofibular and posterior talofibular ligaments are intact. The calcaneofibular ligament is intact. Anterior tibiofibular and posterior tibiofibular ligaments are intact. The deep deltoid ligament fibers are intact. The tibial spring and spring ligament are intact. The dorsal talonavicular and calcaneocuboid ligaments are intact. The dorsal, interosseous, and plantar components of the Lisfranc ligament are intact. Bones, cartilage, joints: Focal bone marrow edema along the dorsal talar neck with thickening of the dorsal talonavicular ligament. No osteochondral lesion. Focal full-thickness cartilage loss at the middle subtalar joint with subchondral cystic change and subchondral edema along the talar side (series 4, image 9). Full-thickness cartilage loss at the calcaneocuboid joint with subchondral edema of both sides of the joint (series 4, image 16). Cartilage at the talonavicular joint is preserved, but there are marginal osteophytes with subchondral edema. Subchondral edema at the naviculocuneiform joint with subchondral cystic change and focal high-grade cartilage loss is consistent with osteoarthropathy. Subchondral cystic change and subchondral edema of the 3rd, 4th, and 5th tarsometatarsal joints. High-grade cartilage loss at the 1st tarsometatarsal joint and 2nd tarsometatarsal joint. Trace tibiotalar and subtalar joint effusions. Small hypointense foci interposed between the middle and lateral cuneiform (series 6, image 10, with surrounding edema could represent calcium hydroxyapatite deposition, small intra-articular bodies, or sequela of old trauma. Muscles and soft tissues: A fatty replacement of the abductor digiti minimi muscle. Remaining muscles are normal in bulk and signal. Normal fat signal in the sinus tarsi. No solid or cystic compressive lesion in the tarsal tunnel. Forefoot: Bones and joints: There is an oblique fracture of the 5th metatarsal neck. There is surrounding bone marrow edema and periostitis. Focal bone marrow focal T1 hypointense bandlike marrow signal change at the base of the 4th metatarsal (series 5, image 7), with mild edema is consistent with a healing insufficiency fracture. Band of T1 hypointense signal at the base of the 3rd metatarsal with mild associated T2 hyperintense signal (series 7, image 11), consistent with healing insufficiency fracture. Full-thickness cartilage loss of the 1st toe interphalangeal joint and 1st metatarsophalangeal joint. There is associated subchondral cystic change of chondral edema at both of these joints, consistent with osteoarthropathy. Ligaments: The dorsal, interosseous, and plantar components of the Lisfranc ligament are intact. Tendons: Visualized flexor and extensor tendons are intact. Mild fluid distention of the extensor digitorum longus tendons, consistent with tenosynovitis. Muscles: Normal bulk and signal of the muscles of the forefoot. Other soft tissues: No solid nodule in the intermetatarsal spaces. There is fluid in the 2nd and 3rd intermetatarsal spaces, consistent with bursitis. Procedure Note Marnie Leggett MD - 08/23/2024 EXAMINATION: MRI LE Joint w/o Contrast Left, MRI LE Non Joint w/o ContrastLeft CLINICAL HISTORY: Sprained ankle;S93.402A Sprain of unspecified ligamentof left ankle, init (as entered by ordering provider in the order requisition) TECHNIQUE: Routine MR of the left ankle was performed without contrast using [facility] ankle protocol. Sequences include axial T1, axial T2 with fatsaturation, coronal T2 with fat saturation, coronal oblique proton density, sagittalproton density, and sagittal STIR. MR of the left midfoot was performed without IV contrast. Sequencesinclude sagittal T1, sagittal proton density, short axis proton density, shortaxis TII with fat saturation, long axis TI, long axis fat saturation. COMPARISON: CT of the left leg August 16, 2024. Left ankle radiograph July 07, 2024. FINDINGS: Ankle: Tendons: The Achilles tendon is normal in morphology and signal. Small ossicles within the substance of the central band of the plantarfascia, consistent with sequela of old injury. The medial flexor, peroneal flexor, and anterior extensor tendons areintact. Mild fluid distention of the posterior tibial tendon. Fraying of theperoneus brevis tendon without a discrete tear. Ligaments: The anterior talofibular and posterior talofibular ligamentsare intact. The calcaneofibular ligament is intact. Anterior tibiofibular and posterior tibiofibular ligaments are intact. The deep deltoid ligament fibers are intact. The tibial spring andspring ligament are intact. The dorsal talonavicular and calcaneocuboid ligaments are intact. The dorsal, interosseous, and plantar components of the Lisfranc ligamentare intact. Bones, cartilage, joints: Focal bone marrow edema along the dorsal talarneck with thickening of the dorsal talonavicular ligament. No osteochondrallesion. Focal full-thickness cartilage loss at the middle subtalar joint with subchondral cystic change and subchondral edema along the talar side(series 4, image 9). Full-thickness cartilage loss at the calcaneocuboid jointwith subchondral edema of both sides of the joint (series 4, image 16).Cartilage at the talonavicular joint is preserved, but there are marginal osteophyteswith subchondral edema. Subchondral edema at the naviculocuneiform joint with subchondral cysticchange and focal high-grade cartilage loss is consistent with osteoarthropathy. Subchondral cystic change and subchondral edema of the 3rd, 4th, and 5th tarsometatarsal joints. High-grade cartilage loss at the 1sttarsometatarsal joint and 2nd tarsometatarsal joint. Trace tibiotalar and subtalar joint effusions. Small hypointense foci interposed between the middle and lateralcuneiform (series 6, image 10, with surrounding edema could represent calcium hydroxyapatite deposition, small intra-articular bodies, or sequela ofold trauma. Muscles and soft tissues: A fatty replacement of the abductor digitiminimi muscle. Remaining muscles are normal in bulk and signal. Normal fat signal in the sinus tarsi. No solid or cystic compressive lesion in the tarsal tunnel. Forefoot: Bones and joints: There is an oblique fracture of the 5th metatarsal neck. There is surrounding bone marrow edema and periostitis. Focal bone marrow focal T1 hypointense bandlike marrow signal change atthe base of the 4th metatarsal (series 5, image 7), with mild edema is consistentwith a healing insufficiency fracture. Band of T1 hypointense signal at the base of the 3rd metatarsal withmild associated T2 hyperintense signal (series 7, image 11), consistent withhealing insufficiency fracture. Full-thickness cartilage loss of the 1st toe interphalangeal joint and1st metatarsophalangeal joint. There is associated subchondral cystic changeof chondral edema at both of these joints, consistent withosteoarthropathy. Ligaments: The dorsal, interosseous, and plantar components of theLisfranc ligament are intact. Tendons: Visualized flexor and extensor tendons are intact. Mild fluid distention of the extensor digitorum longus tendons, consistent with tenosynovitis. Muscles: Normal bulk and signal of the muscles of the forefoot. Other soft tissues: No solid nodule in the intermetatarsal spaces. Thereis fluid in the 2nd and 3rd intermetatarsal spaces, consistent withbursitis. IMPRESSION 1. 5th metatarsal neck fracture. Other lateral ankle and foot paingenerators include peroneus brevis fraying and Mcgee neuropathy. 2. Other forefoot pain generators include 2nd and 3rd intermetatarsalspace bursitis. 3. Healing insufficiency fractures at the base of the 3rd and 4thmetatarsals. 4. Healing avulsion fracture of the dorsal talar neck with sprain/injuryof the dorsal talonavicular ligament. Other sources of dorsal foot paininclude extensor digitorum longus tenosynovitis. 5. Medial ankle and foot pain generators include posterior tibial tenosynovitis. 6. Possible plantar foot and ankle pain generators include sequela ofprior plantar fascia injury. 7. 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 Other midfoot pain generators include possible calcium hydroxyapatitedeposition between the middle and lateral cuneiform versus sequela of old trauma orsmall intra-articular bodies. Thank you for letting us participate in the care of this patient. If youare a health care provider and have any questions regarding this report,please contact the number below. For patients who have questions please contactthe health direct care professional that requested your imaging first. us Summer Worrell DP PACS IMAGES Final Result * CT Lower Extremity wo Contrast Left (Generic) (08/16/2024 3:10 PM EDT) PT CLASS O RAD ADMITDTTM [id number] [facility] PT [facility] INFO [id number]^Galla gher^Marquez^D [facility] EXAM DESC CTLOEXWOL^CT Lower Extremity w/o Contrast Left^RIS [facility] WORKSTATION ID [id number] [facility] Anatomical Region Laterality Modality Hip, Leg, Knee, Thigh, Ankle, Foot Left Computed Tomography 08/16/2024 3:10 PM EDT Impressions 08/17/2024 8:[address] images obtained for preoperative planning. 2. Advanced left knee osteoarthritis. Thank you for letting us participate in the care of this patient. If you are a health care provider and have any questions regarding this report, please contact the number below. For patients who have questions please contact the health direct care professional that requested your imaging first. Narrative 08/17/2024 8:27 AM EDT EXAMINATION: CT Lower Extremity w/o Contrast Left CLINICAL HISTORY: left knee DJD - preop planning;M17.12 Unilateral primary osteoarthritis, left knee TECHNIQUE: Unenhanced CT examination of the left lower extremity obtained for preoperative planning. COMPARISON: Radiographs left knee 07/25/2024 Radiographs left ankle 07/08/2019 FINDINGS: Bone/joints: No fracture or dislocation The left hip shows mild joint narrowing, subchondral cyst and osteophytes compatible with osteoarthropathy. The partially imaged bony pelvis is intact. Advanced tricompartmental knee osteoarthritis with joint space narrowing and large osteophytes. There is chondrocalcinosis of the menisci. No knee effusion. The axial only images of the ankle shows no significant abnormality or malalignment. Calcaneal enthesophyte at Achilles insertion. Center fascia calcifications Soft tissues: Unremarkable. The muscles are normal in appearance. Intrapelvic contents: No intrapelvic fluid collection or adnexal mass. The uterus is absent. No lymphadenopathy. Procedure Note Eduardo Briggs MD - 08/17/2024 EXAMINATION: CT Lower Extremity w/o Contrast Left CLINICAL HISTORY: left knee DJD - preop planning;M17.12 Unilateralprimary osteoarthritis, left knee TECHNIQUE: Unenhanced CT examination of the left lower extremity obtained forpreoperative planning. COMPARISON: Radiographs left knee 07/25/2024 Radiographs left ankle 07/08/2019 FINDINGS: Bone/joints: No fracture or dislocation The left hip shows mild joint narrowing, subchondral cyst andosteophytes compatible with osteoarthropathy. The partially imaged bony pelvis isintact. Advanced tricompartmental knee osteoarthritis with joint space narrowingand large osteophytes. There is chondrocalcinosis of the menisci. No knee effusion. The axial only images of the ankle shows no significant abnormality or malalignment. Calcaneal enthesophyte at Achilles insertion. Centerfascia calcifications Soft tissues: Unremarkable. The muscles are normal in appearance. Intrapelvic contents: No intrapelvic fluid collection or adnexal mass. The uterus is absent.No lymphadenopathy. IMPRESSION 1. CT images obtained for preoperative planning. 2. Advanced left knee osteoarthritis. Thank you for letting us participate in the care of this patient. If youare a health care provider and have any questions regarding this report,please contact the number below. For patients who have questions please contactthe health direct care professional that requested your imaging first. us Marquez Davis MD IM CT ORDERABLES Final Resu lt * XR Knee 4 or more views Left (07/25/2024 11:11 AM EDT) PT CLASS O RAD ADMITDTTM [id number] RAD PT RAD INFO [id number]^Johanna chambers^Marquez^Ave RAD EXAM DESC [id number]^XR Knee 4 Views w/ Patella Left^RIS RAD WORKSTATION ID [id number] RAD Anatomical Region Laterality Modality Knee Left Radiographic Tiffanie ging 07/25/2024 11:1 1 AM EDT Impressions 07/25/2024 11:16 AM EDT Severe degenerative arthritis of the left knee. Thank you for letting us participate in the care of this patient. If you are a health care provider and have any questions regarding this report, please contact the number below. For patients who have questions please contact the health direct care professional that requested your imaging first. Narrative 07/25/2024 11:16 AM EDT EXAMINATION: XR Knee 4 Views w/ Patella Left CLINICAL HISTORY: left knee pain;M25.562 Pain in left knee TECHNIQUE: 4 views of the left knee, weightbearing. COMPARISON: None FINDINGS: No acute fracture or dislocation. Moderate to severe narrowing of tibiofemoral compartments more pronounced in the lateral compartment. There is associated prominent marginal osteophyte formation and chondrocalcinosis. No significant knee effusion. Procedure Note Dung Girard MD - 07/25/2024 EXAMINATION: XR Knee 4 Views w/ Patella Left CLINICAL HISTORY: left knee pain;M25.562 Pain in left knee TECHNIQUE: 4 views of the left knee, weightbearing. COMPARISON: None FINDINGS: No acute fracture or dislocation. Moderate to severe narrowing oftibiofemoral compartments more pronounced in the lateral compartment. There isassociated prominent marginal osteophyte formation and chondrocalcinosis. Nosignificant knee effusion. IMPRESSION Severe degenerative arthritis of the left knee. Thank you for letting us participate in the care of this patient. If youare a health care provider and have any questions regarding this report,please contact the number below. For patients who have questions please contactthe health direct care professional that requested your imaging first. us Marquez Davis MD IMG DX ORDERABLES Final Resu lt from Last 3 Months Insurance [email or web address] [id number] [employer] Care Teams Ophthalmic Aide Relationship Specialty Start Date End Date Jennifer Gordillo APRN [address] [place] [address] PCP - General Family Medicine 10/09/21
--- OUTSIDE RECORDS SUMMARY | 2024-10-23 08:07 | XMS_ITS ---
Author Name [facility] Organization Unknown History of Medication Use Medication Directions Dispensed Refills Start Date End Date Stat cyclobenzaprine (FLEXERIL) 10 MG tablet Take 1 tablet (10 mg total) by mouth. 08/26/2023 active Diclofenac Sodium 1 % GEL Apply 4 g topically. 10/05/2021 active nystatin (MYCOSTATIN) cream APPLY CREAM TOPICALLY TWICE DAILY 10/05/2021 active venlafaxine (EFFEXOR-XR) 150 MG 24 hr capsule TAKE 1 CAPSULE DAILY TO BE TAKEN WITH THE 75 MG CAPSULE FOR A TOTAL OF 225 MG DAILY 09/11/2021 10/12/2023 aborted rizatriptan (MAXALT) 10 MG tablet TAKE 1 TABLET AT ONSET OF HEADACHE, MAY REPEAT IN 2 HOURS IF NEEDED, MAX OF 2 TABLETS PER 24 HOURS OR 6 TABLETS PER WEEK 08/21/2021 active atenolol (TENORMIN) tablet 50 mg Take 1 tablet (50 mg total) by mouth daily. 01/12/2021 active Ferrous Sulfate (IRON PO) Take 15 mL by mouth. active Problems Problem Status Onset Date Problem Type Date of Resoluti on Source Chronic non-specific white matter lesions on MRI active EncounterDiagnosisAct CTTH NEMG Migraine variant active EncounterDiagnosisAct CTTHNEMG
== END 2024-10-23 08:35 | disposition home or self-care (01) ==
LOC: HO.HSMS 08:04
PROVIDERS: PCP Nurse Practitioner Adult Health; Visit Provider Psychiatry & Neurology Neurology
DX: G43.719 Chronic migraine without aura, intractable, without status migrainosus (principal)
CPT/HCPCS: 64615

== ENCOUNTER → 2024-10-23 08:03 | Outpatient (BNVA) | payer BC, SELFPAY | PROVIDERS: PCP Nurse Practitioner Adult Health; Visit Provider Psychiatry & Neurology Neurology | DX: G43.719 Chronic migraine without aura, intractable, without status migrainosus (principal) | CPT/HCPCS: 64615; 99211; J0585 ==